=== PATIENT | male | born 1940 | race Caucasian/White ===

== ENCOUNTER 2023-07-12 14:00 | Inpatient (IN) ==
[2023-07-12] MEDS ORDERED: dilTIAZem HCl 5 MG/ML 5 ML VIAL IV ONE (14:11)
[2023-07-12] MEDS ORDERED: ASPIRIN CHEW 324 MG PO STA (14:13)
[2023-07-12] MEDS ORDERED: SODIUM CHLORIDE 0.9% 500 ML IV STA (14:13)
[2023-07-12 14:38] LABS: Basophils # (auto) 0.02 K/uL (0.00-0.20); Basophils % (auto) 0.2 %; Eosinophils # (auto) 0.06 K/uL (0.00-0.50); Eosinophils % (auto) 0.7 %; Hematocrit (blood only) 36.6 % (42.0-52.0); Hemoglobin 12.9 g/dl (14.0-18.0); Immature Granulocytes # (auto) 0.03 K/uL (0.01-0.20); Immature Granulocytes % (auto) 0.4 %; Lymphocytes # (auto) 1.49 K/uL (1.20-3.40); Lymphocytes % (auto) 18.5 %; Mean Corpuscular Hgb Conc 35.2 g/dL (32.0-36.0); Mean Corpuscular Volume 90.8 fL (80.0-100.0); Mean Platelet Volume 9.7 fL (9.4-12.4); Monocytes # (auto) 0.66 K/uL (0.11-0.59); Monocytes % (auto) 8.2 %; Neutrophils # (auto) 5.79 K/uL (1.40-6.50); Platelet Count 186 K/uL (130-400); RDW Coefficient of Variation 11.9 % (11.5-14.5); RDW Standard Deviation 39.2 fL (36.4-46.3); Red Blood Count 4.03 M/uL (4.70-6.10); White Blood Count 8.05 K/ul (4.8-10.8)
[2023-07-12 14:53] LABS: Magnesium 1.9 mg/dl (1.7-2.4)
[2023-07-12 14:59] LABS: Troponin I High Sensitivity 12.9 pg/ml (0-20)
--- NOTE | 2023-07-12 15:10 | XRay Report ---
SINGLE VIEW CHEST CLINICAL HISTORY: Atypical chest pain. FINDINGS: An AP, portable, upright chest radiograph is obtained. No prior studies are available for c omparison at the time of dictation. The patient's head partially obscures the apices. The heart is en larged noting atherosclerotic calcification of the thoracic aorta. The pulmonary vasculature is nonco ngested. There is mild bibasilar atelectasis. The lungs and pleural spaces are otherwise clear. No pn eumothorax is seen. The skeletal structures are osteopenic. The bony thorax is grossly intact. IMPRESSION: Cardiomegaly with no active disease in the chest. ACT 112: Negative or not required by law. Electronically signed by: Thor Desir M.D. 07/12/2023 3:09 PM
[2023-07-12 15:23] LABS: Partial Thromboplastin Ratio 0.9; Prothrombin Time 10.8 Seconds (9.0-12.0)
[2023-07-12 15:40] LABS: D Dimer 1250 ug/L FEU (0-500)
[2023-07-12 16:02] LABS: Anion Gap 4 (3-11); BUN Creatinine Ratio 19.8 (10-20); Blood Urea Nitrogen 25 mg/dl (6-23); Calcium 8.4 mg/dl (8.6-10.3); Carbon Dioxide 28 mmol/L (21-32); Chloride 99 mmol/L (98-107); Est GFR (African American) 61.6 ml/min; Est GFR (Non-African American) 53.1 ml/min; Glucose 329 mg/dl (70-99(Fasting)); Potassium 4.3 mmol/L (3.5-5.1); Sodium 131 mmol/L (136-145)
--- NOTE | 2023-07-12 16:15 | Ultrasound Report ---
US venous doppler LE LT CLINICAL HISTORY: ro dvt TECHNIQUE: Left lower extremity real-time compression venous ultrasound with Color Doppler imaging. U tilizing real-time ultrasonic imaging multiple real time high-resolution ultrasonic images with compr ession and noncompression maneuvers of the deep venous system in addition to color doppler imaging we re performed from the common femoral vein through the proximal calf veins. COMPARISON: None available at the time of this dictation. FINDINGS/IMPRESSION: Currently there is normal compressibility of the deep venous system from the common femoral vein thro ugh the proximal calf veins. No superficial venous thrombosis is identified. ACT 112: Negative or not required by law. Electronically signed by: Davy Benavides M.D. 07/12/2023 4:14 PM
[2023-07-12] MEDS ORDERED: IOVERSOL 350 MG 125mL Prefilled Syringe IV ONE (16:29)
[2023-07-12] MEDS ORDERED: STAT IV Infusion **Titration per Protocol STA (16:51)
--- NOTE | 2023-07-12 16:59 | CT Scan Report ---
CT angio chest PE protocol CLINICAL HISTORY: ro PE TECHNIQUE: Multidetector row helical CT of the chest was performed with angiographic protocol. Frank l and sagittal reformations were obtained. Coronal and sagittal MIPS were obtained from the axial merritt a set and were submitted for review. Automated dose lowering techniques and/or adjustment according to patient size were utilized for this exam. CT DOSE: 1473.91 mGy.cm Comparison: None available at the time of this dictation. FINDINGS: Lungs and pleura: Atelectasis versus scarring is seen in the dependent portions of the lungs. Scatter ed blebs are seen in the lungs. There is a trace right pleural effusion. Heart and pericardium: Heart size is normal. No pericardial effusion. Vessels: No evidence of pulmonary embolism. Moderate atherosclerotic disease is seen. Mediastinum and nicole: Unremarkable. Chest wall and lower neck: Unremarkable. Abdomen: Unremarkable. Bones: Degenerative changes in the thoracic spine. IMPRESSION: No acute abnormality and in particular no evidence of pulmonary embolus. Trace right pleural effusion . ACT 112: Negative or not required by law. Electronically signed by: Davy Benavides M.D. 07/12/2023 4:57 PM
[2023-07-12] MEDS ORDERED: Heparin IV Adult Wt-Based Standard WITH Bolus Protocol IV STA (17:17)
[2023-07-12] MEDS: dilTIAZem HCL 125 MG in DEXTROSE 5% 100 ML IV SCH (17:20)
[2023-07-12] MEDS ORDERED: HEPARIN SOD (PORCINE) 1000 UNIT/ML IV ONE ×2 (17:34→18:30)
--- NOTE | 2023-07-12 17:42 | History & Physical Report ---
Date of Service July 12, 2023 Assessment & Plan (1) Atrial fibrillation with RVR: Plan: This is an 82 y/o male with a history of CAD with prior inferior STEMI s/p TUSHAR to the RCA, episode of atrial fib in 2104, pre-diabetes, HTN, dyslipidemia, UC and other history as listed below who presented to the ED via EMS with progressive fatigue over the last 2-3 days and new lightheadedness this AM. EMS found patient to be in atrial fib with RVR. Now on Cardizem gtt for rate control, and started on heparin gtt for new onset atrial fib. Also noted in the ED to have hyperglycemia with sugar >300. Pt has a known histoy of prediabetes/diet-controlled DM but has never been on anything for this previously. Last A1c in Jul 2022 was 5.3. - Admit to PCU for monitoring - Continue Cardizem gtt for rate control - Consult cardiology for additional recommendations - on multiple medications for BP, which has been difficult to control as outpatient. - Heparin gtt for now - [id number] Score 4 (5 if diabetic) so increased risk for stroke. However, pt with history of GI bleed and intestinal AVM so will need to be cautious with any AC and monitor closely. - Repeat EKG in AM (2) Hyperglycemia: Plan: Suspect underlying untreated DM - Check A1c - Diabetic diet - Will add prn insulin coverage pending results of A1c (3) CKD (chronic kidney disease) stage 3, GFR 30-59 ml/min: Plan: Monitor labs (4) HTN (hypertension): (5) Dyslipidemia: (6) Diet-controlled type 2 diabetes mellitus: (7) Ulcerative colitis: Plan: Continue mesalamine (8) Anemia of chronic disease: Plan: Follow H&H for stability on heparin Admission and Anticipated Discharge Date Admission Date: Continue other home medications as appropriate. Pt seen and reviewed with collaborating physician, Dr. Herring. Plan of care discussed and as outlined above. Outpatient records from both [facility] and [facility] were extensively reviewed including notes from PCP, cardiology, and nephrology. Code Status: DNR/DNI DVT prophylaxis: heparin gtt Rip Rod PA-C History of Present Illness Chief Complaint: fatigue, lightheadedness Primary Care Provider: Jamil Katz DO This is an 82 y/o male with a history of CAD with prior inferior STEMI s/p TUSHAR to the RCA, episode of atrial fib in 2104, pre-diabetes, HTN, dyslipidemia, UC and other history as listed below who presented to the ED via EMS with progressive fatigue over the last 2-3 days and new lightheadedness this AM. He notes being more tired than usual over the last couple days, having to rest even after relatively minimal exertion. This morning, he was in the shower after getting up and got very lightheaded to the point of having to sit in the shower to finish. After his shower, he went back to bed to rest for a while then got back up to do some things around the house. Again, got very fatigued and was lightheaded so he checked his BP and pulse, which are usually in the 130s-140s systolic and rate of 55-60, and found his BP to be 118/70 with a pulse of 118- 125. He called EMS to bring him to the ED for further evaluation. EMS found pt to be in atrial fibrillation with RVR. Given cardizem x 1 dose in the ED with in itial improvement then worsening rate again so started on cardizem gtt and heparin gtt. Pt notes that he was admitted for a GI bleed in 2014 and went into atrial fib that admission, which was attributed to the blood loss and converted spontaneously after transfusion. He denies any known recurrence of the atrial fib since then. He denies recent illness. Last week had right shoulder pain that lasted 1-2 days, took some Tylenol and it improved. Has had issues with his shoulders before so did not think this was unusual. Denies syncope, chest pain or heaviness, palpitations, GAMBLE, N/V/D. His UC is well-controlled on current meds - no blood in stool. Had EGD/colonoscopy within the last two years, which were fine. He was told that he is pre-diabetic years ago - tries to limit sugar in diet but hasn't avoided completely. Finally, he notes new swelling in feet x 3-4 days - worse on the left - but no calf or LE pain. He has anemia of chronic disease, which has been stable on the ferrous sulfate. Allergies Allergy/AdvReac Type Severity Reaction Status Date / Time No Known Drug Allergies Allergy Unknown Verified 07/12/23 17:52 Home Medications Medication Instructions Recorded Confirmed Type Bifidobacterium infantis 4 mg 4 mg PO DAILY 07/12/23 07/12/23 History capsule (Align) amlodipine 10 mg tablet 10 mg PO DAILY 07/12/23 07/12/23 History ascorbic acid (vitamin C) 250 mg 250 mg PO DAILY 07/12/23 07/12/23 History tablet aspirin 81 mg tablet,delayed 81 mg PO DAILY 07/12/23 07/12/23 History release atorvastatin 80 mg tablet 80 mg PO QPM 07/12/23 07/12/23 History benazepril 20 mg tablet 20 mg PO BID 07/12/23 07/12/23 History carvedilol 12.5 mg tablet 12.5 mg PO BID 07/12/23 07/12/23 History cholecalciferol (vitamin D3) 50 50 mcg PO DAILY 07/12/23 07/12/23 History mcg (2,000 unit) capsule (Vitamin D3) doxazosin 2 mg tablet 2 mg PO DAILY 07/12/23 07/12/23 History famotidine 20 mg tablet 20 mg PO DAILY PRN Acid Reflux 07/12/23 07/12/23 History ferrous sulfate 325 mg (65 mg 325 mg PO BID 07/12/23 07/12/23 History iron) tablet fexofenadine 180 mg tablet 180 mg PO DAILY PRN Allergy 07/12/23 07/12/23 History Symptoms hydrochlorothiazide 12.5 mg tablet 12.5 mg PO DAILY 07/12/23 07/12/23 History isosorbide mononitrate 30 mg 30 mg PO DAILY 07/12/23 07/12/23 History tablet,extended release 24 hr light mineral oil 1 %-mineral oil 1 drp ophthalmic (eye) QID 07/12/23 07/12/23 History 4.5 % eye drops (Soothe XP) loperamide 1 mg/7.5 mL oral liquid 2 mg PO Q4H PRN Diarrhea 07/12/23 07/12/23 History mesalamine 1.2 gram tablet,delayed 2.4 g PO DAILY 07/12/23 07/12/23 History release nitroglycerin 0.4 mg sublingual 0.4 mg sublingual UD PRN Chest Pain 07/12/23 07/12/23 History tablet simethicone 180 mg capsule 180 mg PO BID PRN Abdominal 07/12/23 07/12/23 History Distention Past Med/Surg History Medical History (Updated 07/12/23 @ 19:03 by Archana Rod PA-C) Anemia of chronic disease Asymptomatic carotid artery stenosis CAD (coronary artery disease), [place] coronary artery CKD (chronic kidney disease) stage 3, GFR 30-59 ml/min Diet-controlled type 2 diabetes mellitus Dyslipidemia History of inferior wall myocardial infarction HTN (hypertension) Secondary hyperparathyroidism Ulcerative colitis Surgical History History of cardiac cath TUSHAR to RCA Family History Mother Heart disease Sister Lymphoma Social History Smoking Status: Former smoker Preferred Language: Lebanese marital status: / current occupational status: retired 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 Feels Safe at Home: Yes Review of Systems Review of Systems: All systems reviewed & are unremarkable except as noted in HPI & below Constitutional: + sweats (last night) and + fatigue; no fever and no chills Eyes: no diplopia and no worsening vision Ear, Nose, Mouth, Throat: no nasal congestion, no nasal discharge and no sore throat Respiratory: no cough, no dyspnea and no wheezing Cardiovascular: as per Subjective / HPI Gastrointestinal: no abdominal pain, no nausea, no vomiting and no blood in stools Genitourinary: no dysuria or no hematuria Musculoskeletal: no back pain and no neck pain Integumentary: no yellowing of the skin Neurologic: no seizure-like activity, no syncope and no headache(s) Physical Exam Constitutional: well developed and well nourished; no acute distress Eyes: + anicteric sclerae Neck: trachea midline Respiratory: no respiratory distress and no labored breathing Auscultation: lungs clear to auscultation bilaterally; no rales, no rhonchi and no wheezes Cardiovascular: Rate/Rhythm: + tachycardic and + irregularly irregular Vessels: radial pulses present Extremities: + edema (trace to 1+ LE edema - left > right) Gastrointestinal (Abdomen): Inspection/Auscultation: normal bowel sounds; abdomen not distended Percussion/Palpation: abdomen soft; abdomen nontender Musculoskeletal: Head/Neck/Chest: normocephalic, head atraumatic and neck supple Skin: no jaundice Neurologic: moves all extremities; no focal motor deficits and not confused Psychiatric: Orientation: alert and oriented x 3 Results & Data Results & Data Vital Signs (Past 12 Hours) Vital Signs Temp Pulse Resp BP Pulse Ox O2 Del Method 07/12/23 15:30 88 23 143/102 H 96 Room Air 07/12/23 15:00 81 18 125/70 97 Room Air 07/12/23 14:30 83 21 115/58 L 95 Room Air 07/12/23 14:18 83 24 112/52 L 93 Room Air 07/12/23 14:13 119 H 28 H 141/87 H 96 Room Air 07/12/23 14:14 125 07/12/23 14:09 36.8 C 124 20 130/89 96 Room Air Laboratory Results Laboratory Results - last 24 hr 07/12/23 07/12/23 07/12/23 14:18 14:18 14:18 WBC 8.05 RBC 4.03 L Hgb 12.9 L Hct 36.6 L MCV 90.8 MCH 32.0 MCHC 35.2 RDW Std Deviation 39.2 RDW Coeff of Alicia 11.9 Plt Count 186 MPV 9.7 Immature Gran % (Auto) 0.4 Neut % (Auto) 72.0 Lymph % (Auto) 18.5 [place] % (Auto) 8.2 Eos % (Auto) 0.7 Baso % (Auto) 0.2 Neut # (Auto) 5.79 Lymph # (Auto) 1.49 [place] # (Auto) 0.66 H Eos # (Auto) 0.06 Baso # (Auto) 0.02 Immature Gran # (Auto) 0.03 PT 10.8 INR 1.0 APTT 24.0 PTT Ratio 0.9 D-Dimer 1250 H* Sodium Potassium Chloride Carbon Dioxide Anion Gap BUN Creatinine Est Cr Clr Drug Dosing Est GFR ( Amer) Est GFR (Non-Af Amer) BUN/Creatinine Ratio Glucose Calcium Magnesium 1.9 Troponin I High Sens 12.9 Lipase 29 SARS-CoV-2, RNA, NAAT 07/12/23 07/12/23 15:16 15:50 WBC RBC Hgb Hct MCV MCH MCHC RDW Std Deviation RDW Coeff of Alicia Plt Count MPV Immature Gran % (Auto) Neut % (Auto) Lymph % (Auto) [place] % (Auto) Eos % (Auto) Baso % (Auto) Neut # (Auto) Lymph # (Auto) [place] # (Auto) Eos # (Auto) Baso # (Auto) Immature Gran # (Auto) PT INR APTT PTT Ratio D-Dimer Sodium 131 L Potassium 4.3 Chloride 99 Carbon Dioxide 28 Anion Gap 4 BUN 25 H Creatinine 1.26 Est Cr Clr Drug Dosing Not Reportable Est GFR ( Amer) 61.6 Est GFR (Non-Af Amer) 53.1 BUN/Creatinine Ratio 19.8 Glucose 329 H* Calcium 8.4 L Magnesium Troponin I High Sens Lipase SARS-CoV-2, RNA, NAAT NEGATIVE Diagnostic Findings Chest X-Ray 07/12/23 14:13 SINGLE VIEW CHEST CLINICAL HISTORY: Atypical chest pain. FINDINGS: An AP, portable, upright chest radiograph is obtained. No prior studies are available for comparison at the time of dictation. The patient's head partially obscures the apices. The heart is enlarged noting atherosclerotic calcification of the thoracic aorta. The pulmonary vasculature is noncongested. There is mild bibasilar atelectasis. The lungs and pleural spaces are otherwise clear. No pneumothorax is seen. The skeletal structures are osteopenic. The bony thorax is grossly intact. IMPRESSION: Cardiomegaly with no active disease in the chest. ACT 112: Negative or not required by law. Electronically signed by: Thor Desir M.D. 07/12/2023 3:09 PM Venous Doppler Study 07/12/23 14:16 US venous doppler LE LT CLINICAL HISTORY: ro dvt TECHNIQUE: Left lower extremity real-time compression venous ultrasound with Color Doppler imaging. Utilizing real-time ultrasonic imaging multiple real time high-resolution ultrasonic images with compression and noncompression maneuvers of the deep venous system in addition to color doppler imaging were performed from the common femoral vein through the proximal calf veins. COMPARISON: None available at the time of this dictation. FINDINGS/IMPRESSION: Currently there is normal compressibility of the deep venous system from the common femoral vein through the proximal calf veins. No superficial venous thrombosis is identified. ACT 112: Negative or not required by law. Electronically signed by: Davy Benavides M.D. 07/12/2023 4:14 PM Chest CTA 07/12/23 15:39 CT angio chest PE protocol CLINICAL HISTORY: ro PE TECHNIQUE: Multidetector row helical CT of the chest was performed with angiographic protocol. Coronal and sagittal reformations were obtained. Coronal and sagittal MIPS were obtained from the axial data set and were submitted for review. Automated dose lowering techniques and/or adjustment according to patient size were utilized for this exam. CT DOSE: 1473.91 mGy.cm Comparison: None available at the time of this dictation. FINDINGS: Lungs and pleura: Atelectasis versus scarring is seen in the dependent portions of the lungs. Scattered blebs are seen in the lungs. There is a trace right pleural effusion. Heart and pericardium: Heart size is normal. No pericardial effusion. Vessels: No evidence of pulmonary embolism. Moderate atherosclerotic disease is seen. Mediastinum and nicole: Unremarkable. Chest wall and lower neck: Unremarkable. Abdomen: Unremarkable. Bones: Degenerative changes in the thoracic spine. IMPRESSION: No acute abnormality and in particular no evidence of pulmonary embolus. Trace right pleural effusion. ACT 112: Negative or not required by law. Electronically signed by: Davy Benavides M.D. 07/12/2023 4:57 PM Medications Administered Diltiazem HCl 125 mg/ Dextrose 125 mls @ 5 mls/hr IV .Q24H [facility]; Protocol Stop: 08/11/23 16:59 Last Admin: 07/12/23 17:20 Dose: 5 mg/hr, 5 mls/hr Documented By: MAREN Co-signed By: BRUCE Discontinued Medications Aspirin (Aspirin Chew 324 Mg) 324 mg PO NOW STA Stop: 07/12/23 14:14 Last Admin: 07/12/23 14:25 Dose: 324 mg Documented By: NEERU Diltiazem HCl (Diltiazem Hcl 5 Mg/Ml 5 Ml Vial) Confirm Administered Dose 25 mg IV .STK-MED ONE Stop: 07/12/23 14:12 Last Increment: 07/12/23 14:23 Dose: 20 mg Documented By: NEERU Co-signed By: JANESSA Sodium Chloride (Nss) 500 mls @ 999 mls/hr IV .Q31M STA Stop: 07/12/23 14:43 Last Admin: 07/12/23 14:26 Dose: 999 mls/hr Documented By: NEERU Ioversol (Ioversol 350 Mg 125ml Prefilled Syringe) 118 ml IV ONCE ONE Stop: 07/12/23 16:30 Last Admin: 07/12/23 16:35 Dose: 118 ml Documented By: PETAR Miscellaneous (Stat Iv Infusion Titration Per Protocol) 1 each N/A NOW STA Stop: 07/12/23 16:52 Last Admin: 07/12/23 17:21 Dose: 1 each Documented By: MAREN Supervising Physician Co-Signing Physician Notes 82 yr old with new onset atrial fibrillation chads2 vasc score of 5 for rate control with cardizem drip. Reviewed home meds , held someof his blood pressure meds will continue with heparin drip Cardiology consulted for this patient
[2023-07-12] MEDS ORDERED: Heparin IV Adult Wt-Based Standard WITH Bolus Protocol IV SCH (18:00)
[2023-07-12] MEDS: HEPARIN SODIUM/DEXTROSE 25,000 UNITS/500 ML BAG IV SCH (18:51)
[2023-07-12] MEDS ORDERED: ACETAMINOPHEN 325 MG TAB PO PRN (21:08)
[2023-07-12] MEDS ORDERED: GLUCAGON FOR INJ 1 MG VIAL SQ PRN (21:08)
[2023-07-12] MEDS ORDERED: FAMOTIDINE 20 MG TAB PO PRN (21:08)
[2023-07-12] MEDS ORDERED: CARBOHYDRATES FOR HYPOGLYCEMIA PO PRN (21:08)
[2023-07-12] MEDS ORDERED: DEXTROSE 50% 50 ML SYRINGE IV PRN (21:08)
[2023-07-12] MEDS ORDERED: GLUCOSE 10 TAB/TUBE PO PRN (21:08)
[2023-07-12] MEDS ORDERED: GLUCOSE 40% GEL 15 GM TUBE PO PRN (21:08)
[2023-07-12] MEDS ORDERED: ENALAPRIL MALEATE 10 MG TAB PO SCH (22:00)
[2023-07-12] MEDS: carvediloL 12.5 MG TAB PO SCH (22:01)
[2023-07-12] MEDS: ATORVASTATIN 40 MG TAB PO SCH (22:01)
[2023-07-12] MEDS: FERROUS SULFATE 325 MG TAB PO SCH (22:02)
[2023-07-12] MEDS: INSULIN ASPART PER UNIT CHARGE SC SCH (22:14)
--- NOTE | 2023-07-12 23:46 | Emergency Department Note ---
History of Present Illness General Chief Complaint: Chest Pain Time Seen by Provider: 07/12/23 14:05 History of Present Illness Provider Complaint: + palpitations Onset (ago): 1 day(s) Duration: + Constant Context: + occurred during rest Associated symptoms: + other (dizziness); no chest pain, no shortness of breath, no syncope, no nausea, no vomiting, no anxiety, no diaphoresis or no cough HPI narrative: Patient also reports left lower extremity swelling and pain. Home Medications Medication Instructions Recorded Confirmed Type Bifidobacterium infantis 4 mg 4 mg PO DAILY 07/12/23 07/12/23 History capsule (Align) amlodipine 10 mg tablet 10 mg PO DAILY 07/12/23 07/12/23 History ascorbic acid (vitamin C) 250 mg 250 mg PO DAILY 07/12/23 07/12/23 History tablet aspirin 81 mg tablet,delayed 81 mg PO DAILY 07/12/23 07/12/23 History release atorvastatin 80 mg tablet 80 mg PO QPM 07/12/23 07/12/23 History benazepril 20 mg tablet 20 mg PO BID 07/12/23 07/12/23 History carvedilol 12.5 mg tablet 12.5 mg PO BID 07/12/23 07/12/23 History cholecalciferol (vitamin D3) 50 50 mcg PO DAILY 07/12/23 07/12/23 History mcg (2,000 unit) capsule (Vitamin D3) doxazosin 2 mg tablet 2 mg PO DAILY 07/12/23 07/12/23 History famotidine 20 mg tablet 20 mg PO DAILY PRN Acid Reflux 07/12/23 07/12/23 History ferrous sulfate 325 mg (65 mg 325 mg PO BID 07/12/23 07/12/23 History iron) tablet fexofenadine 180 mg tablet 180 mg PO DAILY PRN Allergy 07/12/23 07/12/23 History Symptoms hydrochlorothiazide 12.5 mg tablet 12.5 mg PO DAILY 07/12/23 07/12/23 History isosorbide mononitrate 30 mg 30 mg PO DAILY 07/12/23 07/12/23 History tablet,extended release 24 hr light mineral oil 1 %-mineral oil 1 drp ophthalmic (eye) QID 07/12/23 07/12/23 History 4.5 % eye drops (Soothe XP) loperamide 1 mg/7.5 mL oral liquid 2 mg PO Q4H PRN Diarrhea 07/12/23 07/12/23 History mesalamine 1.2 gram tablet,delayed 2.4 g PO DAILY 07/12/23 07/12/23 History release nitroglycerin 0.4 mg sublingual 0.4 mg sublingual UD PRN Chest Pain 07/12/23 0 07/12/23 History tablet simethicone 180 mg capsule 180 mg PO BID PRN Abdominal 07/12/23 07/12/23 History Distention Allergies Allergy/AdvReac Type Severity Reaction Status Date / Time No Known Drug Allergies Allergy Unknown Verified 07/12/23 17:52 Past Med/Surg History Medical History Anemia of chronic disease Asymptomatic carotid artery stenosis CAD (coronary artery disease), kaibab coronary artery CKD (chronic kidney disease) stage 3, GFR 30-59 ml/min Diet-controlled type 2 diabetes mellitus Dyslipidemia History of inferior wall myocardial infarction HTN (hypertension) Secondary hyperparathyroidism Ulcerative colitis Surgical History History of cardiac cath TUSHAR to RCA Family History Mother Heart disease Sister Lymphoma Social History Smoking Status: Former smoker Hx Alcohol Use: No Hx Substance Use: No Preferred Language: Bulgarian Communication Ability: Effective Campground Attendant Required: No Beliefs That Will Affect Care: None marital status: / Current Living Situation: Alone current occupational status: retired 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 Other Information That Helps Us Care for You: No Feels Safe at Home: Yes Safety Concerns: Feels Safe At This Time Assistive Devices: Denture - Upper, Glasses and Hearing Aid - Bilateral Physical Exam Vital Signs: Vital Signs - 24 hr 07/12/23 14:09 07/12/23 14:14 07/12/23 14:13 Temperature 36.8 C Temperature Source Oral Pulse Rate 124 125 119 H Pulse Rate from Sp O2 Sensor 106 H Respiratory Rate 20 28 H Respiratory Effort / Characteristics Non-Labored Sponta neous Respiratory Depth Normal Respiratory Patter n Regular Blood Pressure 130/89 141/87 H Blood Pressure Carol n 102 105 Blood Pressure Pos ition Sitting Pulse Oximetry 96 96 Oxygen Delivery Me thod Room Air Room Air Sepsis Recent Feve r Within 48 Hours No Sepsis New/Unexpla ined Change in Men john Status No Sepsis Action Take n by Nursing No Action Required 07/12/23 14:18 07/12/23 14:30 07/12/23 15:00 Temperature Temperature Source Pulse Rate 83 83 81 Pulse Rate from Sp O2 Sensor 79 Respiratory Rate 24 21 18 Respiratory Effort / Characteristics Respiratory Depth Respiratory Patter n Blood Pressure 112/52 L 115/58 L 125/70 Blood Pressure Carol n 72 77 88 Blood Pressure Pos ition Pulse Oximetry 93 95 97 Oxygen Delivery Me thod Room Air Room Air Room Air Sepsis Recent Feve r Within 48 Hours Sepsis New/Unexpla ined Change in Men john Status Sepsis Action Take n by Nursing 07/12/23 15:30 07/12/23 18:11 07/12/23 16:40 Temperature Temperature Source Pulse Rate 88 109 H 117 H Pulse Rate from Sp O2 Sensor 116 H Respiratory Rate 23 18 Respiratory Effort / Characteristics Respiratory Depth Respiratory Patter n Blood Pressure 143/102 H 170/101 H Blood Pressure Carol n 115 124 Blood Pressure Pos ition Pulse Oximetry 96 96 Oxygen Delivery Me thod Room Air Room Air Sepsis Recent Feve r Within 48 Hours Sepsis New/Unexpla ined Change in Men john Status Sepsis Action Take n by Nursing 07/12/23 17:00 07/12/23 17:30 07/12/23 18:00 Temperature Temperature Source Pulse Rate 122 H 122 H 121 H Pulse Rate from Sp O2 Sensor 121 H 123 H 122 H Respiratory Rate 16 15 26 H Respiratory Effort / Characteristics Respiratory Depth Respiratory Patter n Blood Pressure 132/112 H 134/93 153/94 H Blood Pressure Carol n 118 106 113 Blood Pressure Pos ition Pulse Oximetry 96 95 96 Oxygen Delivery Me thod Room Air Room Air Room Air Sepsis Recent Feve r Within 48 Hours Sepsis New/Unexpla ined Change in Men john Status Sepsis Action Take n by Nursing 07/12/23 18:30 Temperature Temperature Source Pulse Rate 123 H Pulse Rate from Sp O2 Sensor 118 H Respiratory Rate 24 Respiratory Effort / Characteristics Respiratory Depth Respiratory Patter n Blood Pressure 170/108 H Blood Pressure Carol n 128 Blood Pressure Pos ition Pulse Oximetry 97 Oxygen Delivery Me thod Room Air Sepsis Recent Feve r Within 48 Hours Sepsis New/Unexpla ined Change in Men john Status Sepsis Action Take n by Nursing Physical Exam: Physical Exam GENERAL: oriented to person, place, and time. appears well-developed and well- nourished. HENT: Exam performed. - Head: Normocephalic and atraumatic. EYES: Conjunctivae and EOM are normal. Right eye exhibits no discharge. Left eye exhibits no discharge. No scleral icterus. NECK: Normal range of motion. Neck supple. No JVD present. CV: Tachycardic rate, irregular rhythm, normal heart sounds and intact distal pulses. There is no peripheral edema. Palpable radial pulses bue. PULM/CHEST: Effort normal and breath sounds normal. No respiratory distress. No stridor. no wheezes. no rales. ABD: The abdomen is soft. There is no tenderness. NEURO: Motor and sensation grossly intact. SKIN: Skin is warm and dry. He is not diaphoretic. PSYCH: normal mood and affect. Behavior is normal. Judgment and thought content normal. Course Course 1405: The patient was evaluated in room C10. A complete history and physical exam was performed Cardiac monitoring: An order was placed for continuous cardiac monitoring. The monitor shows a rate of 126 with atrial fibrilation rhythm interpreted by me Patient in A-fib RVR. Cardizem 20 mg IV push ordered for the patient. Improved the patient's ventricular rate. 1700: Patient back in rapid ventricular rate with atrial fibrillation. Cardizem drip ordered for the patient. 1830: Vital signs stable. Labs within normal limits with exception of elevated D-dimer. CTA of the chest negative for PE. Patient will be admitted to the [facility] [address] hospitalist team for A-fib RVR heparin drip ordered for the patient also. Patient be admitted to the [facility] [address] hospitalist team. Administered Medications Atorvastatin Calcium (Atorvastatin 40 Mg Tab) 80 mg PO QPM [facility] Stop: 08/11/23 21:07 Last Admin: 07/12/23 22:01 Dose: 80 mg Documented By: FLIGHT RESERVATIONS MANAGER Carvedilol (Carvedilol 12.5 Mg Tab) 12.5 mg PO BID [facility] Stop: 08/11/23 21:07 Last Admin: 07/12/23 22:01 Dose: 12.5 mg Documented By: FLIGHT RESERVATIONS MANAGER Ferrous Sulfate (Ferrous Sulfate 325 Mg Tab) 325 mg PO BIDM [facility] Stop: 08/11/23 21:07 Last Admin: 07/12/23 22:02 Dose: 325 mg Documented By: CHILO Diltiazem HCl 125 mg/ Dextrose 125 mls @ 15 mls/hr IV .[id number] [facility]; Protocol Stop: 08/11/23 16:59 Last Titration: 07/12/23 23:10 Dose: 0 mg/hr, 0 mls/hr Documented By: CHILO Co-signed By: CLINTON Titration: 07/12/23 20:01 Dose: 15 mg/hr, 15 mls/hr Documented By: LEONCIO Co-signed By: KALI Titration: 07/12/23 18:53 Dose: 10 mg/hr, 10 mls/hr Documented By: GALINA Co-signed By: NEERU Titration: 07/12/23 18:02 Dose: 7.5 mg/hr, 7.5 mls/hr Documented By: NEERU Co-signed By: BRUCE Admin: 07/12/23 17:20 Dose: 5 mg/hr, 5 mls/hr Documented By: MAREN Co-signed By: BRUCE Heparin Sodium/Dextrose (Heparin Sodium/Dextrose) 25,000 units in 500 mls @ 29 mls/hr IV .[id number] [facility]; Protocol Stop: 08/11/23 17:44 Last Admin: 07/12/23 18:51 Dose: 1,450 units/hr, 29 mls/hr Documented By: GALINA Co-signed By: NEERU Insulin Aspart (Insulin Aspart Per Unit Charge) 0 units SC ACHS [facility] Stop: 08/11/23 21:07 Last Admin: 07/12/23 22:14 Dose: 6 units Documented By: CHILO Co-signed By: NAZARIO Discontinued Medications Aspirin (Aspirin Chew 324 Mg) 324 mg PO NOW STA Stop: 07/12/23 14:14 Last Admin: 07/12/23 14:25 Dose: 324 mg Documented By: NEERU Diltiazem HCl (Diltiazem Hcl 5 Mg/Ml 5 Ml Vial) Confirm Administered Dose 25 mg IV .STK-MED ONE Stop: 07/12/23 14:12 Last Increment: 07/12/23 14:23 Dose: 20 mg Documented By: NEERU Co-signed By: JANESSA Enalapril Maleate (Enalapril Maleate 10 Mg Tab) 20 mg PO BID [facility] Stop: 08/11/23 21:59 Last Admin: 07/12/23 22:22 Dose: Not Given Documented By: FLIGHT RESERVATIONS MANAGER Heparin Sodium (Porcine) (Heparin Sod (Porcine) 1000 Unit/Ml) 7,000 units IV NOW ONE Stop: 07/12/23 18:31 Last Admin: 07/12/23 18:51 Dose: 7,000 units Documented By: GALINA Co-signed By: NEERU Sodium Chloride (Nss) 500 mls @ 999 mls/hr IV .Q31M STA Stop: 07/12/23 14:43 Last Infusion: 07/12/23 20:58 Dose: 0 mls/hr Documented By: Admin: 07/12/23 14:26 Dose: 999 mls/hr Documented By: NEERU Ioversol (Ioversol 350 Mg 125ml Prefilled Syringe) 118 ml IV ONCE ONE Stop: 07/12/23 16:30 Last Admin: 07/12/23 16:35 Dose: 118 ml Documented By: PETAR Miscellaneous (Stat Iv Infusion Titration Per Protocol) 1 each N/A NOW STA Stop: 07/12/23 16:52 Last Admin: 07/12/23 17:21 Dose: 1 each Documented By: MAREN Medical Decision Making Laboratory Data Attestation: I reviewed the patient's lab results. 07/12/23 14:18 07/12/23 15:16 Lab Results 07/12/23 07/12/23 07/12/23 Range/Units 14:18 14:18 14:18 WBC 8.05 (4.8-10.8) K/ul RBC 4.03 L (4.70-6.10) M/uL Hgb 12.9 L (14.0-18.0) g/dl Hct 36.6 L (42.0-52.0) % MCV 90.8 (80.0-100.0) fL MCH 32.0 (25.0-34.0) pg MCHC 35.2 (32.0-36.0) g/dL RDW Std Deviation 39.2 (36.4-46.3) fL RDW Coeff of Alicia 11.9 (11.5-14.5) % Plt Count 186 (130-400) K/uL MPV 9.7 (9.4-12.4) fL Immature Gran % (Auto) 0.4 % Neut % (Auto) 72.0 % Lymph % (Auto) 18.5 % Wheeler % (Auto) 8.2 % Eos % (Auto) 0.7 % Baso % (Auto) 0.2 % Neut # (Auto) 5.79 (1.40-6.50) K/uL Lymph # (Auto) 1.49 (1.20-3.40) K/uL Wheeler # (Auto) 0.66 H (0.11-0.59) K/uL Eos # (Auto) 0.06 (0.00-0.50) K/uL Baso # (Auto) 0.02 (0.00-0.20) K/uL Immature Gran # (Auto) 0.03 (0.01-0.20) K/uL PT 10.8 (9.0-12.0) Seconds INR 1.0 (0.9-1.1) APTT 24.0 (21.0-31.0) Seconds PTT Ratio 0.9 D-Dimer 1250 H* (0-500) ug/L FEU Sodium (136-145) mmol/L Potassium (3.5-5.1) mmol/L Chloride (98-107) mmol/L Carbon Dioxide (21-32) mmol/L Anion Gap (3-11) BUN (6-23) mg/dl Creatinine (0.6-1.4) mg/dl Est Cr Clr Drug Dosing Est GFR ( Amer) ml/min Est GFR (Non-Af Amer) ml/min BUN/Creatinine Ratio (10-20) Glucose (70-99(Fasting)) mg/dl Calcium (8.6-10.3) mg/dl Magnesium 1.9 (1.7-2.4) mg/dl Troponin I High Sens 12.9 (0-20) pg/ml Lipase 29 (11-82) U/L SARS-CoV-2, RNA, NAAT (NEGATIVE) 07/12/23 07/12/23 Range/Units 15:16 15:50 WBC (4.8-10.8) K/ul RBC (4.70-6.10) M/uL Hgb (14.0-18.0) g/dl Hct (42.0-52.0) % MCV (80.0-100.0) fL MCH (25.0-34.0) pg MCHC (32.0-36.0) g/dL RDW Std Deviation (36.4-46.3) fL RDW Coeff of Alicia (11.5-14.5) % Plt Count (130-400) K/uL MPV (9.4-12.4) fL Immature Gran % (Auto) % Neut % (Auto) % Lymph % (Auto) % Wheeler % (Auto) % Eos % (Auto) % Baso % (Auto) % Neut # (Auto) (1.40-6.50) K/uL Lymph # (Auto) (1.20-3.40) K/uL Wheeler # (Auto) (0.11-0.59) K/uL Eos # (Auto) (0.00-0.50) K/uL Baso # (Auto) (0.00-0.20) K/uL Immature Gran # (Auto) (0.01-0.20) K/uL PT (9.0-12.0) Seconds INR (0.9-1.1) APTT (21.0-31.0) Seconds PTT Ratio D-Dimer (0-500) ug/L FEU Sodium 131 L (136-145) mmol/L Potassium 4.3 (3.5-5.1) mmol/L Chloride 99 (98-107) mmol/L Carbon Dioxide 28 (21-32) mmol/L Anion Gap 4 (3-11) BUN 25 H (6-23) mg/dl Creatinine 1.26 (0.6-1.4) mg/dl Est Cr Clr Drug Dosing Not Reportable Est GFR ( Amer) 61.6 ml/min Est GFR (Non-Af Amer) 53.1 ml/min BUN/Creatinine Ratio 19.8 (10-20) Glucose 329 H* (70-99(Fasting)) mg/dl Calcium 8.4 L (8.6-10.3) mg/dl Magnesium (1.7-2.4) mg/dl Troponin I High Sens (0-20) pg/ml Lipase (11-82) U/L SARS-CoV-2, RNA, NAAT NEGATIVE (NEGATIVE) Imaging Data Attestation: I personally reviewed and interpreted this imaging study as follows: My Impression: Chest x-ray negative. Airway clear. No pneumothorax. No consolidation. No ca rdiomegaly or cephalization.. No free air under the diaphragm. No fractures of the skeletal structures. Radiologist's Impression: Chest X-Ray 07/12/23 14:13 SINGLE VIEW CHEST CLINICAL HISTORY: Atypical chest pain. FINDINGS: An AP, portable, upright chest radiograph is obtained. No prior studies are available for comparison at the time of dictation. The patient's head partially obscures the apices. The heart is enlarged noting atherosclerotic calcification of the thoracic aorta. The pulmonary vasculature is noncongested. There is mild bibasilar atelectasis. The lungs and pleural spaces are otherwise clear. No pneumothorax is seen. The skeletal structures are osteopenic. The bony thorax is grossly intact. IMPRESSION: Cardiomegaly with no active disease in the chest. ACT 112: Negative or not required by law. Electronically signed by: Thor Desir M.D. 07/12/2023 3:09 PM Venous Doppler Study 07/12/23 14:16 US venous doppler LE LT CLINICAL HISTORY: ro dvt TECHNIQUE: Left lower extremity real-time compression venous ultrasound with Color Doppler imaging. Utilizing real-time ultrasonic imaging multiple real time high-resolution ultrasonic images with compression and noncompression maneuvers of the deep venous system in addition to color doppler imaging were performed from the common femoral vein through the proximal calf veins. COMPARISON: None available at the time of this dictation. FINDINGS/IMPRESSION: Currently there is normal compressibility of the deep venous system from the common femoral vein through the proximal calf veins. No superficial venous thrombosis is identified. ACT 112: Negative or not required by law. Electronically signed by: Davy Benavides M.D. 07/12/2023 4:14 PM Chest CTA 07/12/23 15:39 CT angio chest PE protocol CLINICAL HISTORY: ro PE TECHNIQUE: Multidetector row helical CT of the chest was performed with angiographic protocol. Coronal and sagittal reformations were obtained. Coronal and sagittal MIPS were obtained from the axial data set and were submitted for review. Automated dose lowering techniques and/or adjustment according to patient size were utilized for this exam. CT DOSE: 1473.91 mGy.cm Comparison: None available at the time of this dictation. FINDINGS: Lungs and pleura: Atelectasis versus scarring is seen in the dependent portions of the lungs. Scattered blebs are seen in the lungs. There is a trace right pleural effusion. Heart and pericardium: Heart size is normal. No pericardial effusion. Vessels: No evidence of pulmonary embolism. Moderate atherosclerotic disease is seen. Mediastinum and nicole: Unremarkable. Chest wall and lower neck: Unremarkable. Abdomen: Unremarkable. Bones: Degenerative changes in the thoracic spine. IMPRESSION: No acute abnormality and in particular no evidence of pulmonary embolus. Trace right pleural effusion. ACT 112: Negative or not required by law. Electronically signed by: Davy Benavides M.D. 07/12/2023 4:57 PM ECG Data Attestation: I personally reviewed and interpreted this ECG as follows: Additional Comments: EKG 1 at 1401: Atrial fibrillation with a rate of 117. QRS and QTc intervals within normal limits. No ST elevation or ST depression. EKG #2 at 1417: Atrial fibrillation with a rate of 92. QRS and QTc intervals within normal limits. No ST elevation or ST depression. [facility] Narrative 1405: The patient was evaluated in room C10. A complete history and physical exam was performed Cardiac monitoring: An order was placed for continuous cardiac monitoring. The monitor shows a rate of 126 with atrial fibrilation rhythm interpreted by me Patient in A-fib RVR. Cardizem 20 mg IV push ordered for the patient. Improved the patient's ventricular rate. 1700: Patient back in rapid ventricular rate with atrial fibrillation. Cardizem drip ordered for the patient. 1830: Vital signs stable. Labs within normal limits with exception of elevated D-dimer. CTA of the chest negative for PE. [facility] heparin drip ordered for the patient also. [facility]. Impression & Plan Atrial fibrillation with RVR Critical Care Time Critical Care Time: Yes Total Critical Care Time: 81 I have personally spent greater than 81 minutes of critical care time in the direct management of this patient. This includes bedside care, interpretation of diagnostic studies, and testing, discussion with consultants, patient, and family members, and other required patient management activities. This 81 minutes is in excess of all separately billable procedures. Discharge Plan Visit Data Chief Complaint: Chest Pain ED Provider: Judah Harden Discharge Problem: Atrial fibrillation with RVR Patient Disposition: Admitted As Inpatient Discharge Instructions Interventions: ED Discharge Assessment Last Done: 07/12/23 20:57
[2023-07-13 01:57] LABS: Partial Thromboplastin Ratio > 4.9
[2023-07-13 02:04] LABS: Partial Thromboplastin Time > 139.0 Seconds (21.0-31.0)
[2023-07-13 03:15] LABS: Chol HDL Ratio 2.5 (0-5)
[2023-07-13 03:59] LABS: Partial Thromboplastin Ratio 4.9
[2023-07-13 04:04] LABS: Partial Thromboplastin Time 137.1 Seconds (21.0-31.0)
[2023-07-13] MEDS: dilTIAZem HCL 125 MG in DEXTROSE 5% 100 ML IV SCH ×2 (05:18→07:08)
[2023-07-13 06:22] LABS: Partial Thromboplastin Ratio 1.7; Partial Thromboplastin Time 47.6 Seconds (21.0-31.0)
[2023-07-13 07:10] LABS: Estimated Average Glucose 246 mg/dl; Hemoglobin A1C 10.2 % (4.5-5.6)
--- NOTE | 2023-07-13 08:04 | Cardiology Consultation ---
Date of Consultation July 13, 2023 Assessment & Plan (1) Atrial flutter: (2) CAD (coronary artery disease): (3) (HFpEF) heart failure with preserved ejection fraction: (4) HTN (hypertension): Plan IMPRESSION 82 year old male with new onset atrial flutter with rapid ventricular rates. Initially symptomatic with lightheadedness/fatigue. Elevated [id number] score of 5-- increased risk for stroke with PAF. Maintained on diltiazem gtt, home dose of Coreg, and heparin gtt for stroke prevention. Telemetry overnight reveals persistent atrial flutter- there was a 3 hour period of time where rates dropped into the 50-60s and Diltazem was held, however rates now have been averaging in the 90-120s with Diltazem restarted. PLAN: Continue to monitor on Telemetry STOP diltiazem gtt. Transition Coreg to metoprolol succinate 50 mg twice daily for better heart rate control- first dose to be given this afternoon. Echocardiogram obtained -- further recommendations for rate control vs rhythm management pending results. Recommend patient compete a full 30 days of anticoagulation prior to cardioversion. Consider transition from IV heparin to Eliquis 5 mg twice daily at discharge. 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 Monitor renal function and electrolytes- potassium goal of 4.0 (40 meq KCL x1 ordered for this morning), Mag goal of 2.0 (400 mg mag oxide x1 ordered for this am) Benazepril and Imdur on hold due to hypotension Case discussed with Dr. Sena- will follow. Supervising Physician Co-Signing Physician Notes Patient was seen and personally examined. 82-year-old male with known coronary disease, hypertension who presented noting 1 to 2 weeks history of generalized fatigue yesterday with mild lightheadedness checked heart rate and blood pressure and found heart rate to be elevated. Presented to the emergency room where EKG demonstrated typical atrial flutter with variable conduction, elevated ventricular response rate. Initially treated with IV diltiazem Now heart rates trending better after adjustments to increase beta-anai therapy. No chest pains or angina, no congestive heart failure. Echocardiogram with preserved LV systolic function, low normal EF, mild left atrial enlargement Plan: Given uncertain timing of onset we will plan on anticoagulation with possible synchronized cardioversion 3 to 4 weeks time. We will keep n.p.o. after midnight tonight to consider possible RADHA cardioversion if rates not being well controlled though trending better already Additional options may be entertained depending on clinical course including flutter ablation in the future. History of Present Illness Reason for Consultation: Atrial Flutter Requesting Physician: Aw[facility] Hospitalist Attending Physician: Omega Tong MD History of Present Illness 82-year-old male who initially presented to [facility] emergency department for x2 weeks worth of lightheadedness and fatigue which progressively worsened over the last 48 hours. When he went to check his blood pressure at home readings were lower than his normal (118/60s) and heart rates were tachycardic. He had no symptoms suggestive of palpitations. EKG revealed atrial flutter with rapid ventricular response with heart rates in the 110-120s. Patient was started on a diltiazem drip. Elevated [id number] score of 5--heparin drip started. CTA of the chest negative for PE. No evidence of DVT per LE duplex. Upon entrance into the room patient resting in bed. Family at bedside. Now completely asymptomatic with the aflutter. No chest pain, shortness of breath, palpitations, or lightheadedness. Notes mild fatigue. Tele: Ongoing A-Flutter with rates averaging 90-110s. Overnight from 11pm to 230 am rates averaged in the 60s, Diltazem was held, but rates increased around 3am and diltiazem was restarted. Notes a remote history of PAF in the setting of a GIB requiring blood transfusions in ~2013/2014. Most recent GIB about 2 years ago in the setting of potential ? AVM per the patient. Primary outpatient induction heat treater: Dr. Johnson Past medical history: 1.CAD, history of inferior STEMI 07/30/2019 at [facility], transferred to [facility]. a.Status post emergent cardiac catheterization with findings of a 100% culprit occlusion of the prox RCA- remaining vessels were free of obstructive disease with a 30% proximal LAD stenosis, 50% mid LAD stenosis, 30% proximal left circumflex stenosis, and right PDA was supplied by collaterals. i.Status post PCI and placement of x1 TUSHAR (Xience Conchita 3 x 33 mm) 2.Mild ICM- hypokinesis and basal mid segments of the inferior wall per prior echo a.Nonischemic nuclear stress with fixed inferior perfusion defect, no ischemia, 04/2022 3.Hypertension 4.Dyslipidemia 5.Asymptomatic carotid disease, less than 50% stenosis BL per duplex 09/2022 6.Ulcerative colitis, on chronic mesalamine 7. Hx of GIB and intestinal AVMs 8. CKD stage IIIA- follows with nephrology 9. Cigarette smoker 10. Type 2 DM, uncontrolled A1C ~10% 11. Remote history of PAF following GIB. Allergies Allergy/AdvReac Type Severity Reaction Status Date / Time No Known Drug Allergies Allergy Unknown Verified 07/12/23 17:52 Home Medications Medication Instructions Recorded Confirmed Type Bifidobacterium infantis 4 mg 4 mg PO DAILY 07/12/23 07/12/23 History capsule (Align) amlodipine 10 mg tablet 10 mg PO DAILY 07/12/23 07/12/23 History ascorbic acid (vitamin C) 250 mg 250 mg PO DAILY 07/12/23 07/12/23 History tablet aspirin 81 mg tablet,delayed 81 mg PO DAILY 07/12/23 07/12/23 History release atorvastatin 80 mg tablet 80 mg PO QPM 07/12/23 07/12/23 History benazepril 20 mg tablet 20 mg PO BID 07/12/23 07/12/23 History carvedilol 12.5 mg tablet 12.5 mg PO BID 07/12/23 07/12/23 History cholecalciferol (vitamin D3) 50 50 mcg PO DAILY 07/12/23 07/12/23 History mcg (2,000 unit) capsule (Vitamin D3) doxazosin 2 mg tablet 2 mg PO DAILY 07/12/23 07/12/23 History famotidine 20 mg tablet 20 mg PO DAILY PRN Acid Reflux 07/12/23 07/12/23 History ferrous sulfate 325 mg (65 mg 325 mg PO BID 07/12/23 07/12/23 History iron) tablet fexofenadine 180 mg tablet 180 mg PO DAILY PRN Allergy 07/12/23 07/12/23 History Symptoms hydrochlorothiazide 12.5 mg tablet 12.5 mg PO DAILY 07/12/23 07/12/23 History isosorbide mononitrate 30 mg 30 mg PO DAILY 07/12/23 07/12/23 History tablet,extended release 24 hr light mineral oil 1 %-mineral oil 1 drp ophthalmic (eye) QID 07/12/23 07/12/23 History 4.5 % eye drops (Soothe XP) loperamide 1 mg/7.5 mL oral liquid 2 mg PO Q4H PRN Diarrhea 07/12/23 07/12/23 History mesalamine 1.2 gram tablet,delayed 2.4 g PO DAILY 07/12/23 07/12/23 History release nitroglycerin 0.4 mg sublingual 0.4 mg sublingual UD PRN Chest Pain 07/12/23 07/12/23 History tablet simethicone 180 mg capsule 180 mg PO BID PRN Abdominal 07/12/23 07/12/23 History Distention apixaban 5 mg tablet (Eliquis) 5 mg PO BID #60 tabs 07/13/23 Rx Patient History Medical History Anemia of chronic disease Asymptomatic carotid artery stenosis CAD (coronary artery disease), [place] coronary artery CKD (chronic kidney disease) stage 3, GFR 30-59 ml/min Diet-controlled type 2 diabetes mellitus Dyslipidemia History of inferior wall myocardial infarction HTN (hypertension) Secondary hyperparathyroidism Ulcerative colitis Surgical History History of cardiac cath TUSHAR to RCA Family History Mother Heart disease Sister Lymphoma Social History Smoking Status: Former smoker Hx Alcohol Use: No Hx Substance Use: No Preferred Language: Kiswahili Communication Ability: Effective Home Designer Required: No Beliefs That Will Affect Care: None marital status: / Current Living Situation: Alone current occupational status: retired 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 Other Information That Helps Us Care for You: No Feels Safe at Home: Yes Safety Concerns: Feels Safe At This Time Assistive Devices: None Review of Systems Review of Systems: All systems reviewed & are unremarkable except as noted in HPI & below Physical Exam Constitutional: WD/WN, vitals as above no acute distress Eyes: PERRL, conjunctivae normal, anicteric sclerae Neck: normal visual inspection and trachea midline Respiratory: normal respiratory effort, lungs clear to auscultation no cough Auscultation: no rales, no rhonchi and no wheezes Cardiovascular: Rate/Rhythm: + tachycardic and + irregularly irregular Heart Sounds: normal S1 and normal S2 Vessels: no JVD Extremities: + pedal edema (trace/+1 left ankle edema. ) Gastrointestinal (Abdomen): normal bowel sounds, soft, nontender, no hepatosplenomegaly Skin: no rashes, warm and dry Results & Data Vital Signs (Past 12 Hours) Vital Signs Temp Pulse Pulse Pulse Resp BP BP 07/13/23 07:31 36.9 C 127 H 19 07/13/23 07:27 37.1 C 79 20 07/13/23 06:01 121/66 07/13/23 05:13 117 H 07/13/23 02:52 37.1 C 43 L 17 07/12/23 22:03 85 07/12/23 21:22 121 H 07/12/23 21:45 07/12/23 23:22 37.1 C 45 L 18 07/12/23 21:42 36.9 C 96 H 18 07/12/23 21:31 36.3 C L 129 H 18 137/74 07/12/23 20:45 95 H 20 141/65 H 07/12/23 20:30 89 20 144/90 H 07/12/23 20:16 105 H 13 133/75 07/12/23 20:15 116 H 20 133/75 07/12/23 20:01 108 H 22 117/75 BP Pulse Ox O2 Del Method O2 Flow Rate 07/13/23 07:31 127/87 96 Room Air 07/13/23 07:27 94/59 L 93 Nasal Cannula 5.0 07/13/23 06:01 07/13/23 05:13 105/74 07/13/23 02:52 126/61 93 Room Air 07/12/23 22:03 07/12/23 21:22 07/12/23 21:45 Room Air 07/12/23 23:22 104/63 92 Room Air 07/12/23 21:42 132/67 96 Room Air 07/12/23 21:31 96 Room Air 07/12/23 20:45 94 Room Air 07/12/23 20:30 95 Room Air 07/12/23 20:16 94 Room Air 07/12/23 20:15 95 Room Air 07/12/23 20:01 94 Room Air Laboratory Results Cardiac Enzymes 07/12/23 Range/Units 14:18 Troponin I High Sens 12.9 (0-20) pg/ml Coagulation 07/12/23 07/13/23 07/13/23 Range/Units 14:18 00:39 02:46 PT 10.8 (9.0-12.0) Seconds APTT 24.0 > 139.0 H* 137.1 H* (21.0-31.0) Seconds 07/13/23 Range/Units 04:46 PT (9.0-12.0) Seconds APTT 47.6 H* (21.0-31.0) Seconds Lipids 07/13/23 Range/Units 02:46 Triglycerides 59 (0-150) mg/dl Cholesterol 115 (0-200) mg/dl HDL Cholesterol 46 mg/dl Cholesterol/HDL Ratio 2.5 (0-5) CBC 07/12/23 Range/Units 14:18 WBC 8.05 (4.8-10.8) K/ul RBC 4.03 L (4.70-6.10) M/uL Hgb 12.9 L (14.0-18.0) g/dl Hct 36.6 L (42.0-52.0) % Plt Count 186 (130-400) K/uL Neut # (Auto) 5.79 (1.40-6.50) K/uL Lymph # (Auto) 1.49 (1.20-3.40) K/uL [place] # (Auto) 0.66 H (0.11-0.59) K/uL Eos # (Auto) 0.06 (0.00-0.50) K/uL Baso # (Auto) 0.02 (0.00-0.20) K/uL Comprehensive Metabolic Panel 07/12/23 07/13/23 Range/Units 15:16 02:46 Sodium 131 L 135 L (136-145) mmol/L Potassium 4.3 3.7 (3.5-5.1) mmol/L Chloride 99 103 (98-107) mmol/L Carbon Dioxide 28 25 (21-32) mmol/L BUN 25 H 22 (6-23) mg/dl Creatinine 1.26 1.22 (0.6-1.4) mg/dl Glucose 329 H* 126 H (70-99(Fasting)) mg/dl Calcium 8.4 L 8.3 L (8.6-10.3) mg/dl Intake and Output 07/12/23 07/13/23 07/13/23 22:59 06:59 14:59 Intake Total 571.208 / 848.041 276.833 / 848.041 200 / 200 Output Total 150 / 475 325 / 475 150 / 150 Balance 421.208 / 373.041 -48.167 / 373.041 50 / 50 Intake: IV 521.208 / 798.041 276.833 / 798.041 Heparin Sodium/Dextrose 25,000 219.917 / 219.917 units In 500 ml @ 1,050 UNITS/ HR 21 mls/hr IV .[id number] [facility] Rx #:[id number] Sodium Chloride 0.9% 500 ml @ 500 / 500 999 mls/hr IV .Q31M [facility] Rx#: [id number] dilTIAZem HCL 125 mg In 21.208 / 78.124 56.916 / 78.124 Dextrose 5% 100 ml @ 10 MG/HR 10 mls/hr IV .[id number] [facility] Rx#: [id number] Oral 50 / 50 200 / 200 Output: Urine 150 / 475 325 / 475 150 / 150 Other: # Unmeasured Voids 1 1 Weight 87.5 kg 87.5 kg Weight Measurement Method Standing Scale Standing Scale
[2023-07-13] MEDS: INSULIN ASPART PER UNIT CHARGE SC SCH ×4 (08:12→20:44)
[2023-07-13] MEDS: ARTIFICIAL TEARS OP SCH ×4 (08:13→20:46)
[2023-07-13] MEDS: ASCORBIC ACID 500 MG TAB PO SCH (08:15)
[2023-07-13] MEDS: CHOLECALCIFEROL 1,000 UNITS 25 MCG TAB PO SCH (08:15)
[2023-07-13] MEDS: carvediloL 12.5 MG TAB PO SCH (08:15)
[2023-07-13] MEDS: ASPIRIN 81 MG ECTAB PO SCH (08:15)
[2023-07-13] MEDS: FERROUS SULFATE 325 MG TAB PO SCH ×2 (08:16→17:09)
[2023-07-13 08:50] LABS: Calcium 8.3 mg/dl (8.6-10.3); Magnesium 1.8 mg/dl (1.7-2.4); Potassium 3.7 mmol/L (3.5-5.1)
[2023-07-13 08:56] LABS: Est GFR (Non-African American) 55.3 ml/min
[2023-07-13] MEDS ORDERED: NON-FORMULARY MEDICATION (Bifidobacterium Infantis [Align] 4 mg Capsule) PO SCH (09:00)
[2023-07-13] MEDS ORDERED: POTASSIUM CHLORIDE CRTAB 20 MEQ TABCR PO STA (09:07)
[2023-07-13] MEDS ORDERED: MAGNESIUM OXIDE 400 MG TAB PO ONE (09:07)
[2023-07-13] MEDS: ISOSORBIDE MONO EXTENDED REL 30 MG TABCR PO SCH (11:18)
[2023-07-13] MEDS: MESALAMINE 1 EA PO SCH (11:19)
[2023-07-13] MEDS: METOPROLOL SUCC 50MG EXT REL TAB PO SCH ×2 (12:19→18:50)
--- NOTE | 2023-07-13 12:49 | Hospitalist Progress Note ---
Date of Service July 13, 2023 Assessment & Plan (1) Atrial fibrillation with RVR: Plan: Patient is an 82 y/o male with a history of CAD with prior inferior STEMI s/p TUSHAR to the RCA, episode of atrial fib in 2104, pre-diabetes, HTN, dyslipidemia, UC presented to the ED via EMS with progressive fatigue over the last 2-3 days and new lightheadedness this AM. EMS found patient to be in atrial fib with RVR. EKG on admission personally reviewed atrial flutter with ventricular rate in 117 Chest x-ray on admission personally reviewed; no acute finding. CTA chest personally reviewed; no PE. Was started on Cardizem drip and admitted to telemetry floor. Echocardiogram results reviewed; EF of 50 to 55%. Normal left ventricular wall motion. Cardiology on board; recommend transition of Cardizem to metoprolol for rate control. Currently on heparin drip for anticoagulation. Prescription for Eliquis sent. Continue to monitor on telemetry. Possible cardioversion in 30 days on anticoagulation. (2) Hyperglycemia: Plan: Last A1c in Jul 2022 was 5.3. HbA1c during the hospitalization is 10.2. Type 2 diabetes mellitus Discussed with patient regarding different therapeutic options. He will prefer oral medications for now and wants to follow-up with his PCP. Patient with likely benefit from starting on long-acting insulin plus oral hypoglycemic agent. certified lactation educator consulted. (3) CKD (chronic kidney disease) stage 3, GFR 30-59 ml/min: Plan: Creatinine of 1.22; stable. Avoid nephrotoxic agent. (4) HTN (hypertension): Plan: Home medication currently on hold. Holding isosorbide mononitrate, hydrochlorothiazide and benazepril. Coreg transition to metoprolol. (5) Dyslipidemia: Plan: Continue on Lipitor (6) Ulcerative colitis: Plan: Continue mesalamine (7) Anemia of chronic disease: Plan: Follow H&H for stability on heparin Hemoglobin of 12.9. Plan DVT prophylaxis heparin drip DNR/DNI. Time spent evaluating patient, direct bedside care, chart review, placing orders, interpretation of diagnostic studies, discussion with consultants, patient, and family members, as well as other required patient management activities is 60 minutes Please note the above document was generated using voice recognition software. It may contain grammatical, syntax or spelling errors. Any formal questions or concerns about the content, text or information contained within the body of this dictation should be directly addressed to the provider for clarification Admission and Anticipated Discharge Date Admission Date: July 12, 2023 Subjective Patient seen and examined at bedside. He is sitting up on the bed comfortably; not in distress. Telemetry reveals atrial fibrillation with ventricular rate in 120s in AM. Was bradycardic to 50s to 68 last night; Cardizem was held and restarted again after heart rate picked up. Review of Systems Review of Systems: All systems reviewed & are unremarkable except as noted in Subjective Physical Exam Physical Exam: Constitutional: awake, alert orient x3; not in distress. Respiratory: normal respiratory effort, lungs clear to auscultation, no wheeze, rales, rhonchi. Normal insp/exp effort, no accessory muscle use Cardiovascular: Irregular, no murmur, no edema Vessels: no JVD or carotid bruit Chest: normal inspection of chest Abdomen: normal bowel sounds, soft, nontender, no hepatosplenomegaly Musculoskeletal: no cyanosis or clubbing, extremities motor strength 5/5 Skin: no rashes, warm and dry normal turgor Neurologic: PERRL, EOMI, accommodation nl, no face palsy, no dysarthria CN's II- XI intact bilaterally and moves all extremities Psychiatric: A+Ox3, euthymic affect Results & Data Results & Data Vital Signs (Past 12 Hours) Vital Signs Temp Pulse Pulse Resp BP BP Pulse Ox 07/13/23 07:31 36.9 C 127 H 19 127/87 96 07/13/23 07:27 37.1 C 79 20 94/59 L 93 07/13/23 06:01 121/66 07/13/23 05:13 117 H 105/74 07/13/23 02:52 37.1 C 43 L 17 126/61 93 O2 Del Method O2 Flow Rate 07/13/23 07:31 Room Air 07/13/23 07:27 Nasal Cannula 5.0 07/13/23 06:01 07/13/23 05:13 07/13/23 02:52 Room Air Laboratory Results Laboratory Results WBC 8.05 K/ul (4.8-10.8) 07/12/23 14:18 RBC 4.03 M/uL (4.70-6.10) L 07/12/23 14:18 Hgb 12.9 g/dl (14.0-18.0) L 07/12/23 14:18 Hct 36.6 % (42.0-52.0) L 07/12/23 14:18 MCV 90.8 fL (80.0-100.0) 07/12/23 14:18 MCH 32.0 pg (25.0-34.0) 07/12/23 14:18 MCHC 35.2 g/dL (32.0-36.0) 07/12/23 14:18 RDW Std Deviation 39.2 fL (36.4-46.3) 07/12/23 14:18 RDW Coeff of Alicia 11.9 % (11.5-14.5) 07/12/23 14:18 Plt Count 186 K/uL (130-400) 07/12/23 14:18 MPV 9.7 fL (9.4-12.4) 07/12/23 14:18 Immature Gran % (Auto) 0.4 % 07/12/23 14:18 Neut % (Auto) 72.0 % 07/12/23 14:18 Lymph % (Auto) 18.5 % 07/12/23 14:18 [place] % (Auto) 8.2 % 07/12/23 14:18 Eos % (Auto) 0.7 % 07/12/23 14:18 Baso % (Auto) 0.2 % 07/12/23 14:18 Neut # (Auto) 5.79 K/uL (1.40-6.50) 07/12/23 14:18 Lymph # (Auto) 1.49 K/uL (1.20-3.40) 07/12/23 14:18 [place] # (Auto) 0.66 K/uL (0.11-0.59) H 07/12/23 14:18 Eos # (Auto) 0.06 K/uL (0.00-0.50) 07/12/23 14:18 Baso # (Auto) 0.02 K/uL (0.00-0.20) 07/12/23 14:18 Immature Gran # (Auto) 0.03 K/uL (0.01-0.20) 07/12/23 14:18 PT 10.8 Seconds (9.0-12.0) 07/12/23 14:18 INR 1.0 (0.9-1.1) 07/12/23 14:18 APTT 47.6 Seconds (21.0-31.0) H* 07/13/23 04:46 PTT Ratio 1.7 07/13/23 04:46 D-Dimer 1250 ug/L FEU (0-500) H* 07/12/23 14:18 Sodium 135 mmol/L (136-145) L 07/13/23 02:46 Potassium 3.7 mmol/L (3.5-5.1) 07/13/23 02:46 Chloride 103 mmol/L (98-107) 07/13/23 02:46 Carbon Dioxide 25 mmol/L (21-32) 07/13/23 02:46 Anion Gap 7 (3-11) 07/13/23 02:46 BUN 22 mg/dl (6-23) 07/13/23 02:46 Creatinine 1.22 mg/dl (0.6-1.4) 07/13/23 02:46 Est Cr Clr Drug Dosing 49.0 ml/min 07/13/23 02:46 Est GFR ( Amer) 64.0 ml/min 07/13/23 02:46 Est GFR (Non-Af Amer) 55.3 ml/min 07/13/23 02:46 BUN/Creatinine Ratio 18.0 (10-20) 07/13/23 02:46 Glucose 126 mg/dl (70-99(Fasting)) H 07/13/23 02:46 POC Glucose 260 mg/dl (70-99) H 07/13/23 11:16 Estimat Average Glucose 246 mg/dl 07/13/23 02:46 Hemoglobin A1c 10.2 % (4.5-5.6) H 07/13/23 02:46 Calcium 8.3 mg/dl (8.6-10.3) L 07/13/23 02:46 Magnesium 1.8 mg/dl (1.7-2.4) 07/13/23 02:46 Troponin I High Sens 12.9 pg/ml (0-20) 07/12/23 14:18 Triglycerides 59 mg/dl (0-150) 07/13/23 02:46 Cholesterol 115 mg/dl (0-200) 07/13/23 02:46 LDL Cholesterol, Calc 57 mg/dl 07/13/23 02:46 VLDL Cholesterol, Calc 12 mg/dl (0-30) 07/13/23 02:46 HDL Cholesterol 46 mg/dl 07/13/23 02:46 Cholesterol/HDL Ratio 2.5 (0-5) 07/13/23 02:46 Lipase 29 U/L (11-82) 07/12/23 14:18 TSH 2.053 uIu/ml (0.300-4.500) 07/13/23 02:46 SARS-CoV-2, RNA, NAAT NEGATIVE (NEGATIVE) 07/12/23 15:50 Impressions Chest X-Ray 07/12/23 14:13 SINGLE VIEW CHEST CLINICAL HISTORY: Atypical chest pain. FINDINGS: An AP, portable, upright chest radiograph is obtained. No prior studies are available for comparison at the time of dictation. The patient's head partially obscures the apices. The heart is enlarged noting atherosclerotic calcification of the thoracic aorta. The pulmonary vasculature is noncongested. There is mild bibasilar atelectasis. The lungs and pleural spaces are otherwise clear. No pneumothorax is seen. The skeletal structures are osteopenic. The bony thorax is grossly intact. IMPRESSION: Cardiomegaly with no active disease in the chest. ACT 112: Negative or not required by law. Electronically signed by: Thor Desir M.D. 07/12/2023 3:09 PM Venous Doppler Study 07/12/23 14:16 US venous doppler LE LT CLINICAL HISTORY: ro dvt TECHNIQUE: Left lower extremity real-time compression venous ultrasound with Color Doppler imaging. Utilizing real-time ultrasonic imaging multiple real time high-resolution ultrasonic images with compression and noncompression maneuvers of the deep venous system in addition to color doppler imaging were performed from the common femoral vein through the proximal calf veins. COMPARISON: None available at the time of this dictation. FINDINGS/IMPRESSION: Currently there is normal compressibility of the deep venous system from the common femoral vein through the proximal calf veins. No superficial venous thrombosis is identified. ACT 112: Negative or not required by law. Electronically signed by: Davy Benavides M.D. 07/12/2023 4:14 PM Chest CTA 07/12/23 15:39 CT angio chest PE protocol CLINICAL HISTORY: ro PE TECHNIQUE: Multidetector row helical CT of the chest was performed with angiographic protocol. Coronal and sagittal reformations were obtained. Coronal and sagittal MIPS were obtained from the axial data set and were submitted for review. Automated dose lowering techniques and/or adjustment according to patient size were utilized for this exam. CT DOSE: 1473.91 mGy.cm Comparison: None available at the time of this dictation. FINDINGS: Lungs and pleura: Atelectasis versus scarring is seen in the dependent portions of the lungs. Scattered blebs are seen in the lungs. There is a trace right pleural effusion. Heart and pericardium: Heart size is normal. No pericardial effusion. Vessels: No evidence of pulmonary embolism. Moderate atherosclerotic disease is seen. Mediastinum and nicole: Unremarkable. Chest wall and lower neck: Unremarkable. Abdomen: Unremarkable. Bones: Degenerative changes in the thoracic spine. IMPRESSION: No acute abnormality and in particular no evidence of pulmonary embolus. Trace right pleural effusion. ACT 112: Negative or not required by law. Electronically signed by: Davy Benavides M.D. 07/12/2023 4:57 PM
[2023-07-13 13:06] LABS: Partial Thromboplastin Ratio 1.8
[2023-07-13 13:09] LABS: Partial Thromboplastin Time 51.3 Seconds (21.0-31.0)
[2023-07-13] MEDS: HEPARIN SODIUM/DEXTROSE 25,000 UNITS/500 ML BAG IV SCH ×2 (14:32→18:52)
[2023-07-13] MEDS: ATORVASTATIN 40 MG TAB PO SCH (20:46)
[2023-07-13] MEDS ORDERED: BENAZEPRIL HCL 10 MG TAB PO SCH (21:00)
[2023-07-13] MEDS ORDERED: BENAZEPRIL HCL 20 MG TAB PO SCH (21:00)
[2023-07-13] MEDS ORDERED: MAGNESIUM SULFATE / D5W 1 GM/100 ML BAG IV ONE (22:57)
[2023-07-13] MEDS ORDERED: POTASSIUM CHLORIDE PWD 20 MEQ PACK PO STA (22:57)
[2023-07-13] MEDS ORDERED: DIGOXIN 250 MCG in SYRINGE 9 ML IV STA (22:59)
[2023-07-13] MEDS ORDERED: NSS + 20MEQ KCL 20 MEQ/1,000 ML BAG IV ONE (22:59)
[2023-07-14] MEDS ORDERED: Nursing to Pharmacy Communication SCH ×2 (00:15→11:15)
[2023-07-14] MEDS ORDERED: dilTIAZem HCl 5 MG/ML 5 ML VIAL IV STA (03:02)
[2023-07-14] MEDS ORDERED: INSULIN ASPART PER UNIT CHARGE SC SCH (06:00)
--- NOTE | 2023-07-14 06:08 | Electrocardiogram Report ---
Test Reason : Blood Pressure : / mmHG Vent. Rate : 117 BPM Atrial Rate : 249 BPM P-R Int : 000 ms QRS Dur : 092 ms QT Int : 314 ms P-R-T Axes : 264 004 020 degrees QTc Int : 438 ms Atrial flutter with variable A-V block Nonspecific ST abnormality Abnormal ECG No previous ECGs available Confirmed by Eulogio Dyer ([id number]) on 07/14/2023 6:08:20 AM Referred By: Confirmed By:Eulogio Dyer
--- NOTE | 2023-07-14 06:08 | Electrocardiogram Report ---
Test Reason : Blood Pressure : / mmHG Vent. Rate : 092 BPM Atrial Rate : 249 BPM P-R Int : 000 ms QRS Dur : 094 ms QT Int : 338 ms P-R-T Axes : -88 085 083 degrees QTc Int : 417 ms Atrial flutter with variable A-V block Abnormal ECG When compared with ECG of 12-JUL-2023 14:01, Questionable change in QRS axis Confirmed by Eulogio Dyer ([id number]) on 07/14/2023 6:08:38 AM Referred By: REFERRED SELF Confirmed By:Eulogio Dyer
[2023-07-14 07:11] LABS: Basophils # (auto) 0.01 K/uL (0.00-0.20); Basophils % (auto) 0.1 %; Eosinophils # (auto) 0.03 K/uL (0.00-0.50); Eosinophils % (auto) 0.4 %; Hemoglobin 11.8 g/dl (14.0-18.0); Immature Granulocytes # (auto) 0.03 K/uL (0.01-0.20); Immature Granulocytes % (auto) 0.4 %; Lymphocytes # (auto) 1.61 K/uL (1.20-3.40); Lymphocytes % (auto) 21.4 %; Mean Corpuscular Hemoglobin 32.5 pg (25.0-34.0); Mean Corpuscular Hgb Conc 35.8 g/dL (32.0-36.0); Mean Corpuscular Volume 90.9 fL (80.0-100.0); Mean Platelet Volume 9.8 fL (9.4-12.4); Monocytes # (auto) 0.64 K/uL (0.11-0.59); Monocytes % (auto) 8.5 %; Neutrophils % (auto) 69.2 %; Platelet Count 181 K/uL (130-400); RDW Standard Deviation 39.8 fL (36.4-46.3); Red Blood Count 3.63 M/uL (4.70-6.10); White Blood Count 7.52 K/ul (4.8-10.8)
[2023-07-14 07:29] LABS: Partial Thromboplastin Ratio 2.5
[2023-07-14 07:31] LABS: Partial Thromboplastin Time 67.5 Seconds (21.0-31.0)
--- NOTE | 2023-07-14 07:31 | Cardiology Progress Note ---
Date of Service July 14, 2023 Assessment & Plan (1) Atrial flutter: (2) CAD (coronary artery disease): (3) (HFpEF) heart failure with preserved ejection fraction: (4) HTN (hypertension): Plan IMPRESSION 82 year old male with new onset atrial flutter with rapid ventricular rates. Initially symptomatic with lightheadedness/fatigue. Elevated [id number] score of 5-- increased risk for stroke with PAF. PLAN: Monitor on Telemetry- Ventricular rates remain tachycardic, 100-120s. Continue metoprolol succinate 50 mg twice daily We will keep n.p.o. for RADHA guided cardioversion later this morning. Additional options may be entertained depending on clinical course including flutter ablation in the future. Consider transition from IV heparin to Eliquis 5 mg twice daily at discharge. 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 Monitor renal function and electrolytes- potassium goal of 4.0, Mag goal of 2.0 Benazepril, amlodipine, and Imdur on hold due to prior hypotension--blood pressure remains well controlled. Case discussed with Dr. Sena- will follow. Admission and Anticipated Discharge Date Admission Date: July 12, 2023 Supervising Physician Co-Signing Physician Notes Patient was seen and personally examined. Remained in atrial flutter overnight though with generally controlled rates but increased with minimal activity. Patient referred and underwent RADHA guided synchronized electrical cardioversion with successful conversion to sinus rhythm EKG postconversion sinus rhythm with normal tracing Recommendations: Medication changes as noted Metoprolol succinate 50 mg twice per day Would discontinue benazepril given chronic cough begin losartan 100 mg p.o. daily Resume other prehospital medications Anticoagulation with apixaban 5 mg twice per day Stable for discharge later today if ambulatory Follow-up cardiology 1 month Subjective 82-year-old male with known coronary disease, hypertension who presented 07/12/2023 noting 1 to 2 weeks history of generalized fatigue with mild lightheadedness-- checked heart rate and blood pressure and found heart rate to be elevated. Presented to the emergency room where EKG demonstrated typical atrial flutter with variable conduction, elevated ventricular response rate. Initially treated with IV diltiazem. Started on Heparin gtt. 07/14/2023: Upon entrance into the room patient resting in bed. No acute concerns. Remains asymptomatic with atrial flutter. No chest pain, dyspnea, or palptiations. No lightheadedness. Currently NPO since midnight. Tele: Aflutter 100-120s EKG: Aflutter 102 bpm Labs: Potassium and Mag within goal range, increase in SCr to 1.5 (prev 1.2) 07/13/2023: Variable heart rate response with IV diltiazem, rates ranging from 50-120s. IV diltiazem discontinued. Coreg discontinued in favor of metoprolol succinate 50 mg twice daily IV Heparin for stroke prevention. Echocardiogram with preserved LV systolic function, low normal EF, mild left atrial enlargement Review of Systems Review of Systems: All systems reviewed & are unremarkable except as noted in HPI & below Physical Exam Constitutional: WD/WN, vitals as above no acute distress Eyes: PERRL, conjunctivae normal, anicteric sclerae Neck: normal visual inspection and trachea midline Respiratory: normal respiratory effort, lungs clear to auscultation no cough Auscultation: no rales, no rhonchi and no wheezes Cardiovascular: Rate/Rhythm: + tachycardic and + irregularly irregular Heart Sounds: normal S1 and normal S2 Vessels: no JVD Extremities: + pedal edema (trace/+1 left ankle edema. ) Gastrointestinal (Abdomen): normal bowel sounds, soft, nontender, no hepatosplenomegaly Skin: no rashes, warm and dry Results & Data Vital Signs (Past 12 Hours) Vital Signs Temp Pulse Pulse Resp BP Pulse Ox O2 Del Method 07/14/23 05:23 113 H 07/14/23 02:45 36.7 C 121 H 16 113/76 95 Room Air 07/13/23 23:18 125 H 07/13/23 22:40 36.5 C 122 H 20 108/69 93 Room Air Laboratory Results Coagulation 07/13/23 07/14/23 Range/Units 12:24 06:37 APTT 51.3 H* 67.5 H* (21.0-31.0) Seconds CBC 07/14/23 Range/Units 06:37 WBC 7.52 (4.8-10.8) K/ul RBC 3.63 L (4.70-6.10) M/uL Hgb 11.8 L (14.0-18.0) g/dl Hct 33.0 L (42.0-52.0) % Plt Count 181 (130-400) K/uL Neut # (Auto) 5.20 (1.40-6.50) K/uL Lymph # (Auto) 1.61 (1.20-3.40) K/uL [place] # (Auto) 0.64 H (0.11-0.59) K/uL Eos # (Auto) 0.03 (0.00-0.50) K/uL Baso # (Auto) 0.01 (0.00-0.20) K/uL Comprehensive Metabolic Panel 07/13/23 07/14/23 Range/Units 02:46 06:37 Sodium 135 L 136 (136-145) mmol/L Potassium 3.7 4.5 D (3.5-5.1) mmol/L Chloride 103 107 (98-107) mmol/L Carbon Dioxide 25 26 (21-32) mmol/L BUN 22 29 H (6-23) mg/dl Creatinine 1.22 1.52 H D (0.6-1.4) mg/dl Glucose 126 H 156 H (70-99(Fasting)) mg/dl Calcium 8.3 L 8.0 L (8.6-10.3) mg/dl Intake and Output 07/13/23 07/14/23 07/14/23 22:59 06:59 14:59 Intake Total 652.70 / 997.20 100 / 997.20 1115.917 / 1115.917 Balance 652.70 / 697.20 100 / 697.20 1115.917 / 1115.917 Intake: IV 252.70 / 397.20 100 / 397.20 1115.917 / 1115.917 Heparin Sodium/Dextrose 25,000 252.70 / 252.70 264.25 / 264.25 units In 500 ml @ 1,050 UNITS/ HR 21 mls/hr IV .[id number] MARY Rx #:[id number] Magnesium Sulfate / D5w 1 gm In 100 / 100 100 ml @ 50 mls/hr IV ONE ONE Rx#:[id number] Nss + 20Meq KCl 20 meq In 1,000 851.667 / 851.667 ml @ 100 mls/hr IV .Q10H ONE Rx#:[id number] Oral 400 / 600 Other: Other Intake Source NPO Weight 87.6 kg Weight Measurement Method Standing Scale
[2023-07-14 07:39] LABS: BUN Creatinine Ratio 19.1 (10-20); Creatinine Clr Calc Pharmacy 39.4 ml/min; Est GFR (African American) 49.1 ml/min; Est GFR (Non-African American) 42.4 ml/min; Magnesium 2.1 mg/dl (1.7-2.4); Potassium 4.5 mmol/L (3.5-5.1)
[2023-07-14] MEDS: ASPIRIN 81 MG ECTAB PO SCH (07:51)
[2023-07-14] MEDS: ASCORBIC ACID 500 MG TAB PO SCH (07:51)
[2023-07-14] MEDS: CHOLECALCIFEROL 1,000 UNITS 25 MCG TAB PO SCH (07:52)
[2023-07-14] MEDS: FERROUS SULFATE 325 MG TAB PO SCH ×2 (07:52→17:10)
[2023-07-14] MEDS: METOPROLOL SUCC 50MG EXT REL TAB PO SCH ×2 (07:52→20:48)
[2023-07-14] MEDS: ARTIFICIAL TEARS OP SCH ×4 (07:53→20:47)
[2023-07-14] MEDS ORDERED: PROPOFOL IV EMULSION 10 MG/ML 20 ML VIAL IV ONE (09:51)
[2023-07-14] MEDS ORDERED: PHENYLEPHRINE HCL 10 MG/ML VIAL ONE ×3 (09:51→09:53)
--- NOTE | 2023-07-14 10:02 | Anesthesiology Consultation ---
Date of Service July 14, 2023 Assessment & Plan Chart Review Chart Review: Acceptable Risk for Surgery and Patient NOT seen in Pre Admission Testing History Surgery Operation Date: 07/14/23 11:30 Proposed Procedures p Transesophageal Echo w/Anesthesia - Ronald Sena MD s Cardioversion - Ronald Sena MD Height/Weight Height: 5 ft 10 in Weight: 87.6 kg Allergies Allergy/AdvReac Type Severity Reaction Status Date / Time No Known Drug Allergies Allergy Unknown Verified 07/12/23 17:52 Medications Home Medications Medication Instructions Recorded Confirmed Last Taken Bifidobacterium infantis 4 mg 4 mg PO DAILY 07/12/23 07/12/23 Unknown capsule (Align) amlodipine 10 mg tablet 10 mg PO DAILY 07/12/23 07/12/23 07/12/23 ascorbic acid (vitamin C) 250 mg 250 mg PO DAILY 07/12/23 07/12/23 Unknown tablet aspirin 81 mg tablet,delayed 81 mg PO DAILY 07/12/23 07/12/23 07/12/23 release atorvastatin 80 mg tablet 80 mg PO QPM 07/12/23 07/12/23 07/11/23 benazepril 20 mg tablet 20 mg PO BID 07/12/23 07/12/23 07/12/23 carvedilol 12.5 mg tablet 12.5 mg PO BID 07/12/23 07/12/23 07/12/23 cholecalciferol (vitamin D3) 50 50 mcg PO DAILY 07/12/23 07/12/23 Unknown mcg (2,000 unit) capsule (Vitamin D3) doxazosin 2 mg tablet 2 mg PO DAILY 07/12/23 07/12/23 07/12/23 famotidine 20 mg tablet 20 mg PO DAILY PRN Acid Reflux 07/12/23 07/12/23 Unknown ferrous sulfate 325 mg (65 mg 325 mg PO BID 07/12/23 07/12/23 07/12/23 iron) tablet fexofenadine 180 mg tablet 180 mg PO DAILY PRN Allergy 07/12/23 07/12/23 Unknown Symptoms hydrochlorothiazide 12.5 mg tablet 12.5 mg PO DAILY 07/12/23 07/12/23 07/12/23 isosorbide mononitrate 30 mg 30 mg PO DAILY 07/12/23 07/12/23 07/12/23 tablet,extended release 24 hr light mineral oil 1 %-mineral oil 1 drp ophthalmic (eye) QID 07/12/23 07/12/23 Unknown 4.5 % eye drops (Soothe XP) loperamide 1 mg/7.5 mL oral liquid 2 mg PO Q4H PRN Diarrhea 07/12/23 07/12/23 Unknown mesalamine 1.2 gram tablet,delayed 2.4 g PO DAILY 07/12/23 07/12/23 07/12/23 release nitroglycerin 0.4 mg sublingual 0.4 mg sublingual UD PRN Chest Pain 07/12/23 07/12/23 Unknown tablet simethicone 180 mg capsule 180 mg PO BID PRN Abdominal 07/12/23 07/12/23 Unknown Distention apixaban 5 mg tablet (Eliquis) 5 mg PO BID #60 tabs 07/13/23 Unknown Active Medications Generic Name Dose Route Start Last Admin Trade Name Freq PRN Reason Stop Dose Admin Artificial Tears 1 drops 07/13/23 09:00 07/14/23 07:53 Artificial Tears OP 08/12/23 08:59 1 drops QID MARY Administration Ascorbic Acid 250 mg 07/13/23 09:00 07/14/23 07:51 Ascorbic Acid 500 Mg Tab PO 08/12/23 08:59 250 mg DAILY MARY Administration Aspirin 81 mg 07/13/23 09:00 07/14/23 07:51 Aspirin 81 Mg Ectab PO 08/12/23 08:59 81 mg DAILY MARY Administration Atorvastatin Calcium 80 mg 07/12/23 21:08 07/13/23 20:46 Atorvastatin 40 Mg Tab PO 08/11/23 21:07 80 mg QPM MARY Administration Ferrous Sulfate 325 mg 07/12/23 21:08 07/14/23 07:52 Ferrous Sulfate 325 Mg Tab PO 08/11/23 21:07 325 mg BIDM MARY Administration Heparin Sodium/Dextrose 25,000 units in 500 mls @ 21 mls/hr 07/12/23 17:45 07/14/23 07:34 Heparin Sodium/Dextrose IV 08/11/23 17:44 1,050 units/hr .[id number] [facility] 21 mls/hr Titration Protocol 1,050 UNITS/HR Insulin Aspart 0 units 07/14/23 06:00 07/14/23 06:22 Insulin Aspart Per Unit Charge SC 08/13/23 05:59 1 units Q6 MARY Administration Isosorbide Mononitrate 30 mg 07/13/23 09:00 07/13/23 11:18 Isosorbide [place] Extended Rel 30 Mg Tabcr PO 08/12/23 08:59 30 mg DAILY MARY Administration Mesalamine 2 each 07/14/23 09:00 07/13/23 11:19 Mesalamine 1 Ea PO 08/12/23 10:59 2 each QAM MARY Administration Metoprolol Succinate 50 mg 07/13/23 11:15 07/14/23 07:52 Metoprolol Succ 50mg Ext Rel Tab PO 08/12/23 11:14 50 mg BID MARY Administration Vitamin D 2,000 units 07/13/23 09:00 07/14/23 07:52 Cholecalciferol 1,000 Units 25 Mcg Tab PO 08/12/23 08:59 2,000 units DAILY MARY Administration Past Medical History Medical History Anemia of chronic disease Asymptomatic carotid artery stenosis CAD (coronary artery disease), unga coronary artery CKD (chronic kidney disease) stage 3, GFR 30-59 ml/min Diet-controlled type 2 diabetes mellitus Dyslipidemia History of inferior wall myocardial infarction HTN (hypertension) Secondary hyperparathyroidism Ulcerative colitis Past Family History Family History Mother Heart disease Sister Lymphoma Past Surgical History Surgical History History of cardiac cath TUSHAR to [facility] Social History Smoking Status: Former smoker Hx Alcohol Use: No Hx Substance Use: No Review of Systems Constitutional: + sweats (last night) and + fatigue; no fever and no chills Eyes: no diplopia and no worsening vision Ear, Nose, Mouth, Throat: no nasal congestion, no nasal discharge and no sore throat Respiratory: no cough, no dyspnea and no wheezing Cardiovascular: as per Subjective / HPI Gastrointestinal: no abdominal pain, no nausea, no vomiting and no blood in stools Genitourinary (Male): no dysuria or no hematuria Musculoskeletal: no back pain and no neck pain Integumentary: no yellowing of the skin Neurologic: no seizure-like activity, no syncope and no headache(s) Physical Exam Vital Signs Last Vital Signs Temp 36.7 C 07/14/23 07:55 Pulse 120 H 07/14/23 07:55 Resp 16 07/14/23 07:55 BP 128/73 07/14/23 07:55 Pulse Ox 93 07/14/23 07:55 O2 Del Method Room Air 07/14/23 07:55 O2 Flow Rate 5.0 07/13/23 07:27 Constitutional WD/WN, vitals as above well developed and well nourished; no acute distress Eyes PERRL, conjunctivae normal, anicteric sclerae + anicteric sclerae Neck normal visual inspection and trachea midline Respiratory normal respiratory effort, lungs clear to auscultation no respiratory distress, no labored breathing and no cough Auscultation: lungs clear to auscultation bilaterally; no rales, no rhonchi and no wheezes Cardiovascular Rate/Rhythm: + tachycardic and + irregularly irregular Heart Sounds: normal S1 and normal S2 Vessels: radial pulses present; no JVD Extremities: + pedal edema (trace/+1 left ankle edema. ) and + edema (trace to 1+ LE edema - left > right) Gastrointestinal (Abdomen) normal bowel sounds, soft, nontender, no hepatosplenomegaly Inspection/Auscultation: normal bowel sounds; abdomen not distended Percussion/Palpation: abdomen soft; abdomen nontender Musculoskeletal Head/Neck/Chest: normocephalic, head atraumatic and neck supple Skin no rashes, warm and dry no jaundice Neurologic moves all extremities; no focal motor deficits and not confused Psychiatric Orientation: alert and oriented x 3 Testing Laboratory Results 07/14/23 06:37 07/14/23 06:37 PT 10.8 Seconds (9.0-12.0) 07/12/23 14:18 INR 1.0 (0.9-1.1) 07/12/23 14:18 APTT 67.5 Seconds (21.0-31.0) H* 07/14/23 06:37 Hemoglobin A1c 10.2 % (4.5-5.6) H 07/13/23 02:46 07/14/23 07/14/23 07/13/23 07:47 05:51 23:44 POC Glucose 139 H 169 H 156 H
[2023-07-14] MEDS ORDERED: BENZOCAINE/TETRACAIN/BUTAM 50 APPLN/5 GM CAN EXT ONE (10:10)
[2023-07-14] MEDS: LANTUS PER UNIT CHARGE SC SCH (10:22)
--- NOTE | 2023-07-14 10:37 | Cardioversion ---
Date of Service July 14, 2023 Electrical Cardioversion Rpt Electrical Cardioversion Report Patient was seen and examined. Procedure RADHA guided cardioversion explained in detail to patient, informed consent obtained. Formal TIMEOUT performed Patient sedated via anesthesia consultation with continuous HR,BP,O2 sat and endtidal CO2 monitoring. RADHA performed (reported under separate cover). no contraindications to cardioversion Synchronized electrical cardioversion performed using single 150J biphasic shock with successful conversion to sinus. Patient aroused having tolerated well.
--- NOTE | 2023-07-14 10:39 | Anesthesiology Progress Note ---
Date of Service July 14, 2023 Anesthesia Post Procedure Vital Signs Vital Signs: Temp Pulse Pulse Pulse Resp BP BP 07/14/23 07:55 36.7 C 120 H 16 128/73 07/14/23 05:23 113 H 07/14/23 02:45 36.7 C 121 H 16 113/76 07/13/23 23:18 125 H 07/13/23 22:40 36.5 C 122 H 20 108/69 07/13/23 19:00 36.5 C 55 L 20 110/79 07/13/23 16:52 133 H 07/13/23 16:00 37.0 C 89 19 126/57 L 07/13/23 14:08 37.2 C 54 L 14 113/60 Pulse Ox O2 Del Method 07/14/23 07:55 93 Room Air 07/14/23 05:23 07/14/23 02:45 95 Room Air 07/13/23 23:18 07/13/23 22:40 93 Room Air 07/13/23 19:00 94 Room Air 07/13/23 16:52 07/13/23 16:00 95 Room Air 07/13/23 14:08 Room Air Transfer of Care Handoff Completed per policy Notes Mental Status: alert / awake / arousable Patient Amnestic to Procedure: Yes Nausea / Vomiting: adequately controlled Pain: adequately controlled Airway Patency, RR, SpO2: stable & adequate BP & HR: stable & adequate Hydration State: stable & adequate Anesthetic Complications: no major complications apparent and Pt Satisfied with anesthetic care
[2023-07-14] MEDS ORDERED: HEPARIN--STOP ORDER ONE (11:45)
--- NOTE | 2023-07-14 12:00 | Hospitalist Progress Note ---
Date of Service July 14, 2023 Assessment & Plan (1) Atrial flutter: Plan: Patient is an 82 y/o male with a history of CAD with prior inferior STEMI s/p TUSHAR to the R[facility], episode of atrial fib in 2104, pre-diabetes, HTN, dyslipidemia, UC presented to the ED via EMS with progressive fatigue over the last 2-3 days and new lightheadedness this AM. EMS found patient to be in atrial flutter with RVR. EKG on admission personally reviewed atrial flutter with ventricular rate in 117 Chest x-ray on admission personally reviewed; no acute finding. CTA chest personally reviewed; no PE. Was started on Cardizem drip and admitted to telemetry floor. Echocardiogram results reviewed; EF of 50 to 55%. Normal left ventricular wall motion. Status post RADHA with cardioversion on July 14, 2023 Cardiology on board; on metoprolol succinate 50 mg twice daily. Heparin switched over to Eliquis. Outpatient prescription and coupon sent. Continue to monitor on telemetry. (2) Hyperglycemia: Plan: Last A1c in Jul 2022 was 5.3. HbA1c during the hospitalization is 10.2. Type 2 diabetes mellitus Discussed with patient regarding different therapeutic options. He will prefer oral medications for now and wants to follow-up with his PCP. peer educator consulted; patient wants to be on oral agent. His GFR is around 40s; will start him on Jardiance at discharge and follow-up as outpatient. (3) CKD (chronic kidney disease) stage 3, GFR 30-59 ml/min: Plan: Creatinine slightly bumped up to 1.5 today. Monitor for now. Avoid nephrotoxic agent. (4) HTN (hypertension): Plan: Home medication currently on hold. Holding isosorbide mononitrate, hydrochlorothiazide and benazepril. Coreg transition to metoprolol. (5) Dyslipidemia: Plan: Continue on Lipitor (6) Ulcerative colitis: Plan: Continue mesalamine (7) Anemia of chronic disease: Plan: Follow H&H for stability on heparin Hemoglobin around 12. Continue to monitor. Plan DVT prophylaxis Eliquis DNR/DNI. Time spent evaluating patient, direct bedside care, chart review, placing orders, interpretation of diagnostic studies, discussion with consultants, patient, and family members, as well as other required patient management activities is 60 minutes Please note the above document was generated using voice recognition software. It may contain grammatical, syntax or spelling errors. Any formal questions or concerns about the content, text or information contained within the body of this dictation should be directly addressed to the provider for clarification Admission and Anticipated Discharge Date Admission Date: July 12, 2023 Subjective Patient seen and examined at bedside. He underwent successful RADHA with cardioversion. No complaint of chest pain, shortness of breath headache or dizziness. Review of Systems 2 Review of Systems: All systems reviewed & are unremarkable except as noted in Subjective Physical Exam Physical Exam: Constitutional: awake, alert orient x3; not in distress. Respiratory: normal respiratory effort, lungs clear to auscultation, no wheeze, rales, rhonchi. Normal insp/exp effort, no accessory muscle use Cardiovascular: Regular, no murmur, no edema Vessels: no JVD or carotid bruit Chest: normal inspection of chest Abdomen: normal bowel sounds, soft, nontender, no hepatosplenomegaly Musculoskeletal: no cyanosis or clubbing, extremities motor strength 5/5 Skin: no rashes, warm and dry normal turgor Neurologic: PERRL, EOMI, accommodation nl, no face palsy, no dysarthria CN's II- XI intact bilaterally and moves all extremities Psychiatric: A+Ox3, euthymic affect Results & Data Results & Data Vital Signs (Past 12 Hours) Vital Signs Temp Pulse Pulse Pulse Resp BP Pulse Ox 07/14/23 11:07 36.8 C 72 18 154/71 H 96 07/14/23 10:52 122 H 16 160/100 H 93 07/14/23 07:55 36.7 C 120 H 16 128/73 93 07/14/23 05:23 113 H 07/14/23 02:45 36.7 C 121 H 16 113/76 95 O2 Del Method 07/14/23 11:07 Room Air 07/14/23 10:52 Room Air 07/14/23 07:55 Room Air 07/14/23 05:23 07/14/23 02:45 Room Air Laboratory Results Laboratory Results WBC 7.52 K/ul (4.8-10.8) 07/14/23 06:37 RBC 3.63 M/uL (4.70-6.10) L 07/14/23 06:37 Hgb 11.8 g/dl (14.0-18.0) L 07/14/23 06:37 Hct 33.0 % (42.0-52.0) L 07/14/23 06:37 MCV 90.9 fL (80.0-100.0) 07/14/23 06:37 MCH 32.5 pg (25.0-34.0) 07/14/23 06:37 MCHC 35.8 g/dL (32.0-36.0) 07/14/23 06:37 RDW Std Deviation 39.8 fL (36.4-46.3) 07/14/23 06:37 RDW Coeff of Alicia 12.0 % (11.5-14.5) 07/14/23 06:37 Plt Count 181 K/uL (130-400) 07/14/23 06:37 MPV 9.8 fL (9.4-12.4) 07/14/23 06:37 Immature Gran % (Auto) 0.4 % 07/14/23 06:37 Neut % (Auto) 69.2 % 07/14/23 06:37 Lymph % (Auto) 21.4 % 07/14/23 06:37 [place] % (Auto) 8.5 % 07/14/23 06:37 Eos % (Auto) 0.4 % 07/14/23 06:37 Baso % (Auto) 0.1 % 07/14/23 06:37 Neut # (Auto) 5.20 K/uL (1.40-6.50) 07/14/23 06:37 Lymph # (Auto) 1.61 K/uL (1.20-3.40) 07/14/23 06:37 [place] # (Auto) 0.64 K/uL (0.11-0.59) H 07/14/23 06:37 Eos # (Auto) 0.03 K/uL (0.00-0.50) 07/14/23 06:37 Baso # (Auto) 0.01 K/uL (0.00-0.20) 07/14/23 06:37 Immature Gran # (Auto) 0.03 K/uL (0.01-0.20) 07/14/23 06:37 PT 10.8 Seconds (9.0-12.0) 07/12/23 14:18 INR 1.0 (0.9-1.1) 07/12/23 14:18 APTT 67.5 Seconds (21.0-31.0) H* 07/14/23 06:37 PTT Ratio 2.5 07/14/23 06:37 D-Dimer 1250 ug/L FEU (0-500) H* 07/12/23 14:18 Sodium 136 mmol/L (136-145) 07/14/23 06:37 Potassium 4.5 mmol/L (3.5-5.1) D 07/14/23 06:37 Chloride 107 mmol/L (98-107) 07/14/23 06:37 Carbon Dioxide 26 mmol/L (21-32) 07/14/23 06:37 Anion Gap 3 (3-11) 07/14/23 06:37 BUN 29 mg/dl (6-23) H 07/14/23 06:37 Creatinine 1.52 mg/dl (0.6-1.4) H D 07/14/23 06:37 Est Cr Clr Drug Dosing 39.4 ml/min 07/14/23 06:37 Est GFR ( Amer) 49.1 ml/min 07/14/23 06:37 Est GFR (Non-Af Amer) 42.4 ml/min 07/14/23 06:37 BUN/Creatinine Ratio 19.1 (10-20) 07/14/23 06:37 Glucose 156 mg/dl (70-99(Fasting)) H 07/14/23 06:37 POC Glucose 164 mg/dl (70-99) H 07/14/23 11:16 Estimat Average Glucose 246 mg/dl 07/13/23 02:46 Hemoglobin A1c 10.2 % (4.5-5.6) H 07/13/23 02:46 Calcium 8.0 mg/dl (8.6-10.3) L 07/14/23 06:37 Magnesium 2.1 mg/dl (1.7-2.4) 07/14/23 06:37 Troponin I High Sens 12.9 pg/ml (0-20) 07/12/23 14:18 Triglycerides 59 mg/dl (0-150) 07/13/23 02:46 Cholesterol 115 mg/dl (0-200) 07/13/23 02:46 LDL Cholesterol, Calc 57 mg/dl 07/13/23 02:46 VLDL Cholesterol, Calc 12 mg/dl (0-30) 07/13/23 02:46 HDL Cholesterol 46 mg/dl 07/13/23 02:46 Cholesterol/HDL Ratio 2.5 (0-5) 07/13/23 02:46 Lipase 29 U/L (11-82) 07/12/23 14:18 TSH 2.053 uIu/ml (0.300-4.500) 07/13/23 02:46 SARS-CoV-2, RNA, NAAT NEGATIVE (NEGATIVE) 07/12/23 15:50 Impressions Chest X-Ray 07/12/23 14:13 SINGLE VIEW CHEST CLINICAL HISTORY: Atypical chest pain. FINDINGS: An AP, portable, upright chest radiograph is obtained. No prior studies are available for comparison at the time of dictation. The patient's head partially obscures the apices. The heart is enlarged noting atherosclerotic calcification of the thoracic aorta. The pulmonary vasculature is noncongested. There is mild bibasilar atelectasis. The lungs and pleural spaces are otherwise clear. No pneumothorax is seen. The skeletal structures are osteopenic. The bony thorax is grossly intact. IMPRESSION: Cardiomegaly with no active disease in the chest. ACT 112: Negative or not required by law. Electronically signed by: Thor Desir M.D. 07/12/2023 3:09 PM Venous Doppler Study 07/12/23 14:16 US venous doppler LE LT CLINICAL HISTORY: ro dvt TECHNIQUE: Left lower extremity real-time compression venous ultrasound with Color Doppler imaging. Utilizing real-time ultrasonic imaging multiple real time high-resolution ultrasonic images with compression and noncompression maneuvers of the deep venous system in addition to color doppler imaging were performed from the common femoral vein through the proximal calf veins. COMPARISON: None available at the time of this dictation. FINDINGS/IMPRESSION: Currently there is normal compressibility of the deep venous system from the common femoral vein through the proximal calf veins. No superficial venous thrombosis is identified. ACT 112: Negative or not required by law. Electronically signed by: Davy Benavides M.D. 07/12/2023 4:14 PM Chest CTA 07/12/23 15:39 CT angio chest PE protocol CLINICAL HISTORY: ro PE TECHNIQUE: Multidetector row helical CT of the chest was performed with angiographic protocol. Coronal and sagittal reformations were obtained. Coronal and sagittal MIPS were obtained from the axial data set and were submitted for review. Automated dose lowering techniques and/or adjustment according to patient size were utilized for this exam. CT DOSE: 1473.91 mGy.cm Comparison: None available at the time of this dictation. FINDINGS: Lungs and pleura: Atelectasis versus scarring is seen in the dependent portions of the lungs. Scattered blebs are seen in the lungs. There is a trace right pleural effusion. Heart and pericardium: Heart size is normal. No pericardial effusion. Vessels: No evidence of pulmonary embolism. Moderate atherosclerotic disease is seen. Mediastinum and nicole: Unremarkable. Chest wall and lower neck: Unremarkable. Abdomen: Unremarkable. Bones: Degenerative changes in the thoracic spine. IMPRESSION: No acute abnormality and in particular no evidence of pulmonary embolus. Trace right pleural effusion. ACT 112: Negative or not required by law. Electronically signed by: Davy Benavides M.D. 07/12/2023 4:57 PM
[2023-07-14] MEDS: APIXABAN 5 MG TABLET PO SCH ×2 (12:18→20:46)
[2023-07-14] MEDS: INSULIN ASPART PER UNIT CHARGE SC SCH ×3 (12:25→20:45)
[2023-07-14] MEDS: ATORVASTATIN 40 MG TAB PO SCH (20:47)
--- NOTE | 2023-07-15 07:30 | Cardiology Progress Note ---
Date of Service July 15, 2023 Assessment & Plan (1) Atrial flutter: (2) CAD (coronary artery disease): (3) (HFpEF) heart failure with preserved ejection fraction: (4) HTN (hypertension): Plan IMPRESSION 82 year old male with new onset atrial flutter with rapid ventricular rates. Initially symptomatic with lightheadedness/fatigue. Elevated [id number] score of 5-- increased risk for stroke with PAF. S/p RADHA guided DCCV to NSR 07/14/2023 PLAN: Atrial flutter: Continue metoprolol succiante 50 mg BID Continue Eliquis 5 mg BID Hypertension: Continue Losartan 100 mg daily (changed from Benazepril due to chronic cough) Continue home dose Imdur 30 mg daily Restart Norvasc 5 mg daily (normally maintained on 10 mg daily as an outpatient- titrate as appropriate outpatient) Case discussed with Dr. Sena- No further recommendations from a cardiology standpoint. Okay for discharge. Will arrange for cardiology follow up in 4-6 weeks. Admission and Anticipated Discharge Date Admission Date: July 12, 2023 Supervising Physician Co-Signing Physician Notes Patient seen and examined, chart, medications, telemetry reviewed. Assessment and plan as well outlined above. Patient overall feels well this morning. No arrhythmias on telemetry overnight with sinus and sinus bradycardia present. Medication adjustments as outlined above Subjective 82-year-old male with known coronary disease, hypertension who presented 07/12/2023 noting 1 to 2 weeks history of generalized fatigue with mild lightheadedness-- checked heart rate and blood pressure and found heart rate to be elevated. Presented to the emergency room where EKG demonstrated typical atrial flutter with variable conduction, elevated ventricular response rate. Initially treated with IV diltiazem. Started on Heparin gtt-- transitioned to Eliquis 07/14. Rates remained elevated- s/p RADHA guided DCCV 07/14/2023. Patient seen an examined- no acute concerns over night. Maintaining NSR/SB 50- 60s on tele. Eager for discharge. Review of Systems Review of Systems: All systems reviewed & are unremarkable except as noted in HPI & below Physical Exam Constitutional: WD/WN, vitals as above no acute distress Eyes: PERRL, conjunctivae normal, anicteric sclerae Neck: normal visual inspection and trachea midline Respiratory: normal respiratory effort, lungs clear to auscultation no co ugh Auscultation: no rales, no rhonchi and no wheezes Cardiovascular: Rate/Rhythm: regular rate and regular rhythm Heart Sounds: normal S1 and normal S2 Vessels: no JVD Extremities: + pedal edema (trace/+1 left ankle edema. ) Gastrointestinal (Abdomen): normal bowel sounds, soft, nontender, no hepatosplenomegaly Skin: no rashes, warm and dry Results & Data Vital Signs (Past 12 Hours) Vital Signs Temp Pulse Pulse Resp BP Pulse Ox O2 Del Method 07/15/23 04:16 36.7 C 56 L 18 162/67 H 97 Room Air 07/14/23 23:36 57 L 07/14/23 23:29 36.9 C 59 L 18 145/59 H 95 Room Air 07/14/23 22:10 Room Air 07/14/23 19:29 36.9 C 60 18 152/67 H 95 Room Air Laboratory Results Coagulation 07/15/23 Range/Units 07:14 APTT 28.0 (21.0-31.0) Seconds CBC 07/15/23 Range/Units 07:14 WBC 5.55 (4.8-10.8) K/ul RBC 3.61 L (4.70-6.10) M/uL Hgb 11.3 L (14.0-18.0) g/dl Hct 33.5 L (42.0-52.0) % Plt Count 170 (130-400) K/uL Neut # (Auto) 3.75 (1.40-6.50) K/uL Lymph # (Auto) 1.24 (1.20-3.40) K/uL Vigo # (Auto) 0.49 (0.11-0.59) K/uL Eos # (Auto) 0.04 (0.00-0.50) K/uL Baso # (Auto) 0.01 (0.00-0.20) K/uL Comprehensive Metabolic Panel 07/15/23 Range/Units 07:14 Sodium 136 (136-145) mmol/L Potassium 4.5 (3.5-5.1) mmol/L Chloride 105 (98-107) mmol/L Carbon Dioxide 26 (21-32) mmol/L BUN 23 (6-23) mg/dl Creatinine 1.43 H (0.6-1.4) mg/dl Glucose 105 H (70-99(Fasting)) mg/dl Calcium 8.1 L (8.6-10.3) mg/dl Intake and Output 07/14/23 07/15/23 07/15/23 22:59 06:59 14:59 Intake Total 300 / 1875.317 Balance 300 / 1875.317 Intake: Oral 300 / 660 Other: Other Intake Source sip Weight 85.6 kg Weight Measurement Method Built in [facility]
[2023-07-15 07:33] LABS: Basophils # (auto) 0.01 K/uL (0.00-0.20); Basophils % (auto) 0.2 %; Eosinophils # (auto) 0.04 K/uL (0.00-0.50); Eosinophils % (auto) 0.7 %; Hematocrit (blood only) 33.5 % (42.0-52.0); Hemoglobin 11.3 g/dl (14.0-18.0); Immature Granulocytes # (auto) 0.02 K/uL (0.01-0.20); Immature Granulocytes % (auto) 0.4 %; Lymphocytes # (auto) 1.24 K/uL (1.20-3.40); Lymphocytes % (auto) 22.3 %; Mean Corpuscular Hemoglobin 31.3 pg (25.0-34.0); Mean Corpuscular Hgb Conc 33.7 g/dL (32.0-36.0); Mean Corpuscular Volume 92.8 fL (80.0-100.0); Mean Platelet Volume 9.3 fL (9.4-12.4); Monocytes # (auto) 0.49 K/uL (0.11-0.59); Monocytes % (auto) 8.8 %; Neutrophils # (auto) 3.75 K/uL (1.40-6.50); Neutrophils % (auto) 67.6 %; Platelet Count 170 K/uL (130-400); RDW Coefficient of Variation 11.9 % (11.5-14.5); RDW Standard Deviation 40.9 fL (36.4-46.3); Red Blood Count 3.61 M/uL (4.70-6.10); White Blood Count 5.55 K/ul (4.8-10.8)
[2023-07-15 07:55] LABS: BUN Creatinine Ratio 16.1 (10-20); Calcium 8.1 mg/dl (8.6-10.3); Creatinine Clr Calc Pharmacy 41.8 ml/min; Est GFR (African American) 52.9 ml/min; Est GFR (Non-African American) 45.6 ml/min; Potassium 4.5 mmol/L (3.5-5.1)
[2023-07-15] MEDS: INSULIN ASPART PER UNIT CHARGE SC SCH (08:23)
[2023-07-15] MEDS: METOPROLOL SUCC 50MG EXT REL TAB PO SCH (08:24)
[2023-07-15] MEDS: LANTUS PER UNIT CHARGE SC SCH (08:24)
[2023-07-15] MEDS: ASCORBIC ACID 500 MG TAB PO SCH (08:25)
[2023-07-15] MEDS: ISOSORBIDE MONO EXTENDED REL 30 MG TABCR PO SCH (08:25)
[2023-07-15] MEDS: ASPIRIN 81 MG ECTAB PO SCH (08:26)
[2023-07-15] MEDS: CHOLECALCIFEROL 1,000 UNITS 25 MCG TAB PO SCH (08:26)
[2023-07-15] MEDS: FERROUS SULFATE 325 MG TAB PO SCH (08:27)
[2023-07-15] MEDS: MESALAMINE 1 EA PO SCH (08:28)
[2023-07-15] MEDS: ARTIFICIAL TEARS OP SCH (08:28)
[2023-07-15] MEDS: APIXABAN 5 MG TABLET PO SCH (08:28)
[2023-07-15] MEDS ORDERED: LOSARTAN POTASSIUM 50 MG TAB PO SCH (09:00)
[2023-07-15] MEDS ORDERED: amLODIPine BESYLATE 5 MG TAB PO SCH (09:00)
--- NOTE | 2023-07-15 12:57 | Discharge Summary ---
Date of Service July 15, 2023 Admission HPI Per Admitting Provider This is an 82 y/o male with a history of CAD with prior inferior STEMI s/p TUSHAR to the RCA, episode of atrial fib in 2104, pre-diabetes, HTN, dyslipidemia, UC and other history as listed below who presented to the ED via EMS with progressive fatigue over the last 2-3 days and new lightheadedness this AM. He notes being more tired than usual over the last couple days, having to rest even after relatively minimal exertion. This morning, he was in the shower after getting up and got very lightheaded to the point of having to sit in the shower to finish. After his shower, he went back to bed to rest for a while then got back up to do some things around the house. Again, got very fatigued and was lightheaded so he checked his BP and pulse, which are usually in the 130s-140s systolic and rate of 55-60, and found his BP to be 118/70 with a pulse of 118- 125. He called EMS to bring him to the ED for further evaluation. EMS found pt to be in atrial fibrillation with RVR. Given cardizem x 1 dose in the ED with initial improvement then worsening rate again so started on cardizem gtt and heparin gtt. Pt notes that he was admitted for a GI bleed in 2014 and went into atrial fib that admission, which was attributed to the blood loss and converted spontaneously after transfusion. He denies any known recurrence of the atrial fib since then. He denies recent illness. Last week had right shoulder pain that lasted 1-2 days, took some Tylenol and it improved. Has had issues with his shoulders before so did not think this was unusual. Denies syncope, chest pain or heaviness, palpitations, GAMBLE, N/V/D. His UC is well-controlled on current meds - no blood in stool. Had EGD/colonoscopy within the last two years, which were fine. He was told that he is pre-diabetic years ago - tries to limit sugar in diet but hasn't avoided completely. Finally, he notes new swelling in feet x 3-4 days - worse on the left - but no calf or LE pain. He has anemia of chronic disease, which has been stable on the ferrous sulfate. Admission Exam Per Admitting Provider Constitutional: well developed and well nourished; no acute distress Eyes: + anicteric sclerae Neck: trachea midline Respiratory: no respiratory distress and no labored breathing Auscultation: lungs clear to auscultation bilaterally; no rales, no rhonchi and no wheezes Cardiovascular: Rate/Rhythm: + tachycardic and + irregularly irregular Vessels: radial pulses present Extremities: + edema (trace to 1+ LE edema - left > right) Gastrointestinal (Abdomen): Inspection/Auscultation: normal bowel sounds; abdomen not distended Percussion/Palpation: abdomen soft; abdomen nontender Musculoskeletal: Head/Neck/Chest: normocephalic, head atraumatic and neck supple Skin: no jaundice Neurologic: moves all extremities; no focal motor deficits and not confused Psychiatric: Orientation: alert and oriented x 3 Principal Diagnosis A flutter Newly diagnosed type 2 diabetes mellitus Discharge Exam Constitutional: awake, alert orient x3; not in distress. Respiratory: normal respiratory effort, lungs clear to auscultation, no wheeze, rales, rhonchi. Normal insp/exp effort, no accessory muscle use Cardiovascular: Regular, no murmur, no edema Vessels: no JVD or carotid bruit Chest: normal inspection of chest Abdomen: normal bowel sounds, soft, nontender, no hepatosplenomegaly Musculoskeletal: no cyanosis or clubbing, extremities motor strength 5/5 Skin: no rashes, warm and dry normal turgor Neurologic: PERRL, EOMI, accommodation nl, no face palsy, no dysarthria CN's II- XI intact bilaterally and moves all extremities Psychiatric: A+Ox3, euthymic affect Discharge Data Allergies Allergy/AdvReac Type Severity Reaction Status Date / Time No Known Drug Allergies Allergy Unknown Verified 07/12/23 17:52 Consultations 07/12/23 17:38 ED Decision to Admit Stat 07/12/23 21:08 Consult Cardiology Routine 07/14/23 08:42 Consult Anesthesiology Routine Procedures Performed Operation Date: 07/14/23 11:30 Actual Procedures p Echo Transesophageal - Ronald Sena MD s Echo Color Flow - Ronald Sena MD s Cardioversion - Ronald Sena MD Ordered Studies 07/12/23 14:16 US venous doppler LE LT Stat 07/12/23 15:39 CT angio chest PE protocol Stat Diabetes Follow up Diabetes Follow-up Needed for HgbA1c >9%,Newly Diagnosed Diabetes Hospital Course (1) Atrial flutter: Patient is an 82 y/o male with a history of CAD with prior inferior STEMI s/p TUSHAR to the RCA, episode of atrial fib in 2104, pre-diabetes, HTN, dyslipidemia, UC presented to the ED via EMS with progressive fatigue over the last 2-3 days. EMS found patient to be in atrial flutter with RVR. EKG on admission ; atrial flutter with ventricular rate in 117 Chest x-ray on admission ; no acute finding. CTA chest personally reviewed; no PE. Was started on Cardizem drip and admitted to telemetry floor. Echocardiogram results reviewed; EF of 50 to 55%. Normal left ventricular wall motion. Status post RADHA with cardioversion on July 14, 2023 The following medication changes are recommended by the post doctoral researcher: 1) Decrease the dose of amlodipine from 10 mg to 5 mg once a day. 2) Stop taking benazepril, Coreg and hydrochlorothiazide. 3) Start taking losartan 100 mg once a day, metoprolol 50 mg once a day. 4 )Eliquis 5 mg twice a day (2) Hyperglycemia: Last A1c in Jul 2022 was 5.3. HbA1c during the hospitalization is 10.2. Type 2 diabetes mellitus Discussed with patient regarding different therapeutic options. He will prefer oral medications for now and wants to follow-up with his PCP. health promotion educator consulted; patient wants to be on oral agent. His GFR is around 40s; will start him on Jardiance at discharge and follow-up as outpatient . Plan Please note the above document was generated using voice recognition software. It may contain grammatical, syntax or spelling errors. Any formal questions or concerns about the content, text or information contained within the body of this dictation should be directly addressed to the provider for clarification Total Time Total Time Spent Total Time Spent (In Minutes): 35 Total Time Includes: Examination of the Patient, Discharge Planning, Medication Reconciliation, Communication With Other Providers and Other Discharge Plan Discharge Items Patient Disposition: Home - Self-Care Reason For Visit: ATRIAL FIB W/ RVR Discharge Diagnosis: (1) Atrial flutter 2) Type 2 DM Activity: Resume your previous activity Non-emergency contact: Primary Care Provider Call non-emergency contact if: you have any medication questions and your symptoms worsen Follow-up/Referrals: Jamil Katz DO [Primary Care Provider] - (Date & Time 07/20/2023 6:20 PM Provider Jamil Katz DO Department [facility] ) Flaca Bailey CRNP [Nurse Practitioner] - (The Cardiology office will contact you with an appointment.) Diet: Regular Addtl Attending Provider Instructions: You were admitted to the hospital with irregular heart rhythm called atrial flutter. You underwent transesophageal echocardiogram with cardioversion by Dr. Sena on July 14, 2023. The following medication changes are recommended by the post doctoral researcher: 1) Decrease the dose of amlodipine from 10 mg to 5 mg once a day. A new prescription has been sent to her pharmacy 2) Stop taking benazepril, Coreg and hydrochlorothiazide. 3) Start taking losartan 100 mg once a day, metoprolol 50 mg once a day. 4) Please take Eliquis(blood thinner) 5 mg twice a day to prevent future strokes. You were also diagnosed with diabetes mellitus during the hospitalization. Your HbA1c during the hospitalization was 10.2%. Please follow diabetic diet. Check your blood glucose in the fasting state in the morning and make a note of it. You were started on Jardiance 25 mg once a day as suggested by the environmental educator during the hospitalization. Depending on your blood glucose level; more medication can be added as outpatient by your primary care doctor. An appointment with your primary care doctor would be set up for sometime next week. Pending Studies at Discharge: No Stand-Alone Forms: My [facility] CSID, Smoking Cessation Medications and DC Order Prescriptions: New Eliquis 5 mg tablet 5 mg PO BID Qty: 60 0RF metoprolol succinate 50 mg Tablet Extended Release 24 Hr 50 mg PO BID Qty: 30 0RF amlodipine [Norvasc] 5 mg Tablet 5 mg PO QAM Qty: 30 0RF Jardiance 25 mg tablet 25 mg PO DAILY Qty: 30 0RF losartan 100 mg tablet 100 mg PO DAILY Qty: 30 0RF (DME) OneTouch Verio test strips Strip See Rx Instructions .Route Qty: 100 0RF Rx Instructions: As directed (DME) lancets [OneTouch Delica Plus Lancet] 33 gauge misc See Rx Instructions .Route Qty: 100 0RF Rx Instructions: As directed Continued atorvastatin 80 mg tablet 80 mg PO QPM isosorbide mononitrate 30 mg tablet extended release 24 hr 30 mg PO DAILY doxazosin 2 mg tablet 2 mg PO DAILY mesalamine 1.2 gram tablet,delayed release (DR/EC) 2.4 g PO DAILY simethicone 180 mg Capsule 180 mg PO BID PRN (Reason: Abdominal Distention) fexofenadine 180 mg Tablet 180 mg PO DAILY PRN (Reason: Allergy Symptoms) aspirin 81 mg Tablet,Delayed Release (Dr/Ec) 81 mg PO DAILY famotidine 20 mg Tablet 20 mg PO DAILY PRN (Reason: Acid Reflux) ascorbic acid (vitamin C) 250 mg Tablet 250 mg PO DAILY ferrous sulfate 325 mg (65 mg iron) Tablet 325 mg PO BID nitroglycerin 0.4 mg Tablet, Sublingual 0.4 mg sublingual UD PRN (Reason: Chest Pain) Soothe XP 1-4.5 % Drops 1 drp OPHTHALMIC (EYE) QID loperamide 1 mg/7.5 mL Liquid 2 mg PO Q4H PRN (Reason: Diarrhea) Rx Instructions: administer after each loose stool until symptoms controlled; do not exceed 8 mg per 24 hrs Align 4 mg Capsule 4 mg PO DAILY cholecalciferol (vitamin D3) [Vitamin D3] 50 mcg (2,000 unit) Capsule 50 mcg PO DAILY Discontinued carvedilol 12.5 mg tablet 12.5 mg PO BID amlodipine 10 mg tablet 10 mg PO DAILY benazepril 20 mg tablet 20 mg PO BID hydrochlorothiazide 12.5 mg tablet 12.5 mg PO DAILY Discharge Orders: Discharge Order (Routine); Ordered 07/15/23 Ordered By: Omega Tong Admission Data Admit Date/Time: 07/12/23 18:37 Attending Provider: Omega Tong Admit Provider: Judah Herring Primary Care Provider: Jamil Katz. Other Providers: Westley Lowery ; Ronald Sena ; Judah Herring ; Mya Kunz ; Veronica Rojas ; Jeanette Cruz ; Vesna Casey ; Emir Sauceda ; Gary Fisher ; Ocsar Holbrook ; Javier Oconnor ; Piper Oconnor ; Isaias Mnotague ; Amalia Moise ; Feng Negron ; Jose Hutson ; Baldemar Gong ; Davi Cheung ; Yvette Chou ; Jm Pruitt ; Bonnie Lee ; Elizabeth Pruitt ; Irving Loyola ; Flaca Mas ; Benji Sher ; Citlali Hoffman ; Josseline Rodriguez ; Jesu Fernandez ; Angie Redding ; Allie Rice ; Vikki Lord ; Amara Peralta A ; Lon Peralta V ; Darrell Awad ; Veronica Jennings ; Naeem White ; Candie Toussaint ; Lon Becerra ; Miguel Ángel Chou ; Davy Rodgers ; Rita Garay ; Merle More ; Lon Renee ; Peter Rosen ; Luanne Govea ; Thor Martínez ; Jamia Calixto ; Ninfa Huff ; Jv White ; Darrius Cheung ; Lizett Stweart. ; Sissy Martinez ; Emanuel Farias ; Cecilio Perez ; Emir Brown Jr ; Carmen Andrade ; Kathleen Nelson A. ; Erica Bangura A. ; Jesu Morin ; Lynne Sandoval ; Javier Navarrete. ; Torin Thomas I. ; Eva Byrne S. ; Kathleen Estes A. ; BrianElizabeth S. ; Mert Sheldon ; Nitin Squires ; William Bernard ; Lucas Hoffman V. ; Alan Rocha ; Jay Crystal ; Bere Juarez ; Any Dey ; Aby Covarrubias Other Interventions: Discharge Summary Assessment (RN) Last Done: 07/15/23 11:14
--- NOTE | 2023-07-16 06:05 | Electrocardiogram Report ---
Test Reason : Blood Pressure : / mmHG Vent. Rate : 111 BPM Atrial Rate : 256 BPM P-R Int : 000 ms QRS Dur : 096 ms QT Int : 348 ms P-R-T Axes : 000 003 002 degrees QTc Int : 473 ms Atrial flutter with variable A-V block Abnormal ECG When compared with ECG of 12-JUL-2023 14:17, Questionable change in QRS axis Nonspecific T wave abnormality no longer evident in Lateral leads Confirmed by Eulogio Dyer ([id number]) on 07/16/2023 6:04:42 AM Referred By: REFERRED SELF Confirmed By:Eulogio Dyer
--- NOTE | 2023-07-18 08:09 | Electrocardiogram Report ---
Test Reason : Blood Pressure : / mmHG Vent. Rate : 102 BPM Atrial Rate : 256 BPM P-R Int : 000 ms QRS Dur : 092 ms QT Int : 356 ms P-R-T Axes : 221 016 -07 degrees QTc Int : 463 ms Atrial flutter with variable A-V block Nonspecific ST and T wave abnormality Abnormal ECG When compared with ECG of 13-JUL-2023 05:56, No significant change Confirmed by Eulogio Dyer ([id number]) on 07/18/2023 8:09:19 AM Referred By: REFERRED SELF Confirmed By:Eulogio Dyer
--- NOTE | 2023-07-18 08:21 | Electrocardiogram Report ---
Test Reason : Blood Pressure : / mmHG Vent. Rate : 066 BPM Atrial Rate : 066 BPM P-R Int : 172 ms QRS Dur : 098 ms QT Int : 374 ms P-R-T Axes : 067 000 037 degrees QTc Int : 392 ms Normal sinus rhythm Normal ECG When compared with ECG of 14-JUL-2023 06:13, Sinus rhythm has replaced Atrial flutter Vent. rate has decreased BY 36 BPM T wave inversion no longer evident in Inferior leads QT has shortened Confirmed by Eulogio Dyer ([id number]) on 07/18/2023 8:21:11 AM Referred By: REFERRED SELF Confirmed By:Eulogio Dyer
--- NOTE | 2023-07-19 14:20 | Electrocardiogram Report ---
Test Reason : Blood Pressure : / mmHG Vent. Rate : 069 BPM Atrial Rate : 069 BPM P-R Int : 176 ms QRS Dur : 104 ms QT Int : 402 ms P-R-T Axes : 046 004 036 degrees QTc Int : 430 ms Normal sinus rhythm Normal ECG When compared with ECG of 14-JUL-2023 10:47, No significant change was found Confirmed by Eulogio Dyer ([id number]) on 07/19/2023 2:20:10 PM Referred By: REFERRED SELF Confirmed By:Eulogio Dyer
== END 2023-07-15 11:48 | disposition home or self-care (01) | DRG 309 ==
LOC: EDSEX → ED 14:00 → SUATTDRO 18:37 → 2S 18:37